=== PATIENT | female | born 1955 | race Caucasian/White ===

== ENCOUNTER 2018-03-16 09:13 | Inpatient (IN) | payer OTHER, SELFPAY ==
[2018-03-04 10:52] VITALS: BMI 24.5
[2018-03-16] VITALS (20 sets, daily range): BP systolic 84–143; BP diastolic 49–79; PULSE 67–84; RESP 10–20; TEMP 36.1–36.9; O2SAT 93–100; BMI 24.5
--- NOTE | 2018-03-16 | DI.RAD.S_ITS ---
PROCEDURE: XR LUMBAR SPINE 2-3V INDICATIONS: L4-5, L5-S1 TLIF TECHNIQUE: 2 views of the lumbar spine were acquired. COMPARISON: None. FINDINGS: Bones: Immediate postoperative examination after placement of transverse pedicle screws and vertical fixation rods establishing normal alignment from L5-S1 with interbody cage disc prostheses placement at the intervening 2 levels. Soft tissues: Overlying bowel gas pattern is normal. No suspicious soft tissue calcifications. IMPRESSION: Expected normal postoperative alignment after posterior fusion procedure as discussed above. Dictated by: Judson Sandra M.D. on 03/16/2018 at 16:48 Approved by: Judson Sandra M.D. on 03/16/2018 at 16:49
[2018-03-16] MEDS: LACTATED RINGERS 1,000 ML 42 ML IV ×2 (09:54→13:33)
--- NOTE | 2018-03-16 11:04 | PM.PREOP ---
Pre-operative Note Interval Note Pre-op Check: Yes History & Physical Reviewed by Physician, Yes Exam Performed and Yes History & Physical exam performed today by Physician Changes: No
[2018-03-16] MEDS: CLINDAMYCIN 600 MG/50 ML PIGGYBACK 50 MG IV ×2 (11:39→19:43)
[2018-03-16] MEDS: BUPIVACAINE 0.25% W/ EPI VIAL 50 ML INJ (12:13)
--- NOTE | 2018-03-16 12:26 | SUR.OPER ---
Prone on spine table, head in foam head support, padded chest and pelvic supports, gel pad at knees, lower legs supported by pillows; nipples, genitalia and toes free of pressure, arms secured on foam padded arm boards at <90 degrees abduction. Tape over blanket at thigh secured to table.
[2018-03-16] MEDS: BUPIVACAINE LIPOSOME 266 MG/20 ML VIAL INJ (13:12)
[2018-03-16] MEDS: ACETAMINOPHEN IV 1,000 MG/100 ML VIAL 400 MG IV (13:49)
--- NOTE | 2018-03-16 15:36 | PM.OP.1 ---
Operative Date/Time/Diagnoses Date of procedure: 03/16/18 Time of procedure: 12:21 Pre-op diagnosis: 1. L4-5 spondylolisthesis 2. L4-5, L5-S1 spinal stenosis 3. L4-5, L5-S1 spondylosis with radiculopathy Post-op diagnosis: same Procedure & Clinicians Procedure: 1. L4-5, L5-S1 Postero-lateral and posterior interbody fusion 2. L4-5, L5-S1 interbody cage placement. 3. L4-5, L5-S1 decompressive laminectomy with bilateral facetecomies 4. L4-5, L5-S1 Posterior segmental instrumentation 5. [place] of bone marrow from iliac crest 6. Utilization of microsurgical technique and operating microscope Same procedure as scheduled: Yes Indications: Patient has been having chronic back pain and worsening lumbar radiculopathy. Patient failed multiple conservative management with worsening pain weakness and numbness in her lower extremity. Patient has been having difficulty performing activity of daily living. After discussing risks benefits of treatment options, patient elected proceed with surgery. Surgeon: Jessica Houser Dynamic Etching Processor: Yeimy Reid Click Yes if Unassisted: No Operative Notes Closure Type: primary Specimen(s): none sent Implants & Drains: Globus revolve screws, Rise cages Applied: catheter Estimated Blood Loss (mL): 100 Blood products transfused: none Procedure in detail: Patient was seen in the preoperative area. Risks and benefits of the surgery was discussed with the patient. Informed consent was obtained from the patient and placed in the chart. Surgical site was marked. Patient was taken to the operative room. General anesthesia was administered. Prophylactic antibiotic was given to the patient less than 30 min before the incision was made. Patient was placed into a prone position on the Mitchell table. Patient's back was then prepped and draped in the sterile fashion. Time-out was performed at this time. Using AP and lateral C-arm imaging the interval between L4-S1 was identified and marked on patient's back. A 2 inch incision 2 in from midline was made on the right side first. The fascia was incised in line with skin incision. Globus MARS retractors was placed inside the incision and docked onto the L4 and L5 lamina. Using microsurgical technique and operating microscope, a L4 and L5 laminectomy and L4-5 L5-S1 facetectomy was performed using a Kerrison rongeur. The disc space at L4-5, L5-S1 was identified. And a total diskectomy was performed at L4-5, L5-S1 level. The endplates were decorticated using a rasp and shaver. The total diskectomy and decortication was performed at L4-5, L5-S1 level in order to to accomplish a L4-5, L5-S1 fusion. The local bone from the laminectomy and facetectomy was saved for local bone grafting. After the total diskectomy and decortication was completed, Globus viacell bone graft material was combined with local bone that was harvested earlier. At this time, a separate skin is incision was made over the iliac crest. A Jamshidi needle was inserted into the iliac crest through a separate skin incision. 5 cc of bone marrow aspiration was obtained through the separate skin incision using a Jamshidi needle from the iliac crest. The bone marrow aspiration was combined with local bone and the via cell bone grafting material. The bone grafting material was placed into the L4-5, L5-S1 interbody space along with two cages, one expandable cage at each level. The cages were expanded to their maximum height using the torque limiting screwdriver. During the process of L4 laminectomy, a small pinhole size dural defect was encountered. Upon exploration, it is not clear whether the defect was present prior to the surgery. The defect was around 1 mm in size. It is not amenable to repair. Tisseel fibrin glue was obtained and placed over the dural defect after the laminectomy was completed. And there was no visible CSF leakage after this was placed. At this time a mirror image incision was made on the left side. The fascia was incised in line with the skin incision. Globus MARS retractor was inserted and docked onto the L4-5, L5-S1 posterolateral gutter. Using the power drill, posterior-lateral decortication was performed at L4-5, L5-S1 level until bleeding cortical bone was identified. The remaining bone grafting material was placed into the L4-5 L5-S1 posterior lateral gutter he order to accomplish posterolateral fusion at the L4-5 L5-S1 levels. Using the double C-arm technique, pedicle screws were placed into the L4, L5, S1 pedicles bilaterally. This was done by placing the Jamshidi needle into the pedicles, then placing the guidewires over the Jamshidi needle, and finally placing the cannulated screws over the guidewires bilaterally. After the pedicle screws were placed, 2 titanium rods was locked into the heads of the pedicle screws using locking caps and torque limiting screwdriver. Total 6 pedicles screws were placed. After all the hardware was placed, and confirmed with AP and lateral C-arm imaging, the wound was then irrigated with sterile normal saline and packed with Ray-Landon gauze for 3 min to accomplish hemostasis. After the gauze was removed the deep fascia was closed with #1 Vicryl suture. The subcutaneous layer was closed with 2-0 Vicryl. The skin was closed with skin sandi. Patient tolerated the procedure well. There were no complications. Complications: none Condition: stable Disposition: Acute Care Plan for aftercare: Admit to inpatient hospital
[2018-03-16] MEDS: HYDROMORPHONE 2 MG INJ 0.5 MG IV ×2 (16:32→16:38)
[2018-03-16] MEDS: HYDROMORPHONE 1 MG INJ 0.5 MG IV ×3 (17:29→22:20)
[2018-03-16] MEDS: SODIUM CHLORIDE 0.9% 1,000 ML 100 ML IV (17:45)
--- NOTE | 2018-03-16 18:09 | PC.NURSE ---
Pt to room 223 from PACU with c/o pain 02/23. Tension throughout. Daughter @ bedside and advocates for pt requesting pain meds. Administered 0.5 mg iv dilaudid and observing orders to keep HOB flat, gently turned pt slightly onto right side to alleviate pain at surgical site to back. Ice pack applied to dressing to back which is dry and intact. Pt is able to move all extremities independently. Observes head of bed flat as ordered. Ice chips. Elias to gravity. Continuous pulse oximeter in place.
[2018-03-16] MEDS: SUCRALFATE 1 GM TABLET PO ×2 (18:38→20:10)
[2018-03-16] MEDS: DOCUSATE 100 MG CAPSULE PO (20:08)
[2018-03-16] MEDS: GABAPENTIN 600 MG TABLET 1200 MG PO (20:09)
[2018-03-16] MEDS: MIRTAZAPINE 15 MG TABLET 30 MG PO (20:09)
[2018-03-16] MEDS: SENNOSIDES 8.6 MG TABLET 17.2 MG PO (20:10)
[2018-03-16] MEDS: ONDANSETRON 4 MG/2 ML INJ IV (21:13)
[2018-03-16] MEDS: TRAZODONE 50 MG TABLET PO (22:20)
[2018-03-16] MEDS: ACETAMINOPHEN 325 MG TABLET 650 MG PO (22:21)
[2018-03-16] MEDS: hydrOXYzine pamoate 25 MG CAPSULE PO (22:22)
--- NOTE | 2018-03-16 23:49 | PC.NURSE ---
1700- Pt arrived to room 223 from PACU via bed. A/O x3, in and out of sleep with snoring, will fall asleep while talking to pt. Hard time remembering most recent interventions/conversations. 99% 2L nc, wheezing to upper left lung, otherwise LS clear. Pt undiagnosed, but daughter, Nnamdi reports sleep apnea, cont pulse ox on. Dural tear during surgery, HOB to remain flat until morning. Q-2hr turns with strict spinal protocol/logrolling, for comfort. Left hand LR @ 100 + ABO's. Dilaudid 0.5mg IVP Q-2hr for 10/10 pain. 2220-clear light yellow emesis from SF jello ( only available), zofran given. Low back gauze/tape drsg CDI. CMS ++, BT/PP+, foot SCD's on, call light in reach, bed alarm on.
[2018-03-17] VITALS (8 sets, daily range): BP systolic 98–134; BP diastolic 48–68; PULSE 66–75; RESP 15–71; TEMP 36.6–36.9; O2SAT 90–100
[2018-03-17] MEDS: HYDROMORPHONE 1 MG INJ 0.5 MG IV ×2 (02:17→05:53)
--- NOTE | 2018-03-17 02:54 | PC.NURSE ---
Pt. asleep, now after medicated with 0.5 mg. Of Dilaudid IVP. Denies any IBARRA & nausea, so far this shift, will cont. POC & monitor.
[2018-03-17] MEDS: CLINDAMYCIN 600 MG/50 ML PIGGYBACK 50 MG IV (03:54)
[2018-03-17] MEDS: PANTOPRAZOLE 20 MG TABLET PO (05:53)
[2018-03-17] MEDS: hydrOXYzine pamoate 25 MG CAPSULE PO ×2 (05:57→18:52)
[2018-03-17 06:19] LABS: Hematocrit 29.3 % (36-46); Hemoglobin 9.5 g/dL (12.0-16.0)
[2018-03-17] MEDS: SODIUM CHLORIDE 0.9% 1,000 ML 100 ML IV (06:20)
[2018-03-17] MEDS: AMLODIPINE 5 MG TABLET PO (08:16)
[2018-03-17] MEDS: OXYCODONE IR 5 MG TABLET 10 MG PO ×5 (08:16→21:43)
[2018-03-17] MEDS: DOCUSATE 100 MG CAPSULE PO ×2 (08:16→21:11)
[2018-03-17] MEDS: ENALAPRIL 20 MG TABLET PO (08:16)
[2018-03-17] MEDS: SUCRALFATE 1 GM TABLET PO ×4 (08:18→21:15)
[2018-03-17] MEDS: GABAPENTIN 600 MG TABLET PO ×2 (08:18→12:25)
[2018-03-17] MEDS: ONDANSETRON 4 MG/2 ML INJ IV (08:34)
--- NOTE | 2018-03-17 09:19 | CM.DANOTE ---
DCP: Case received, EMR reviewed and met with patient. Introduced self and role. DCP template completed with information currently available. Patient is a 63 year old female who admitted yesterday morning to the care of the hospitalist team. PCP: Dr. Hayden. Payer: confirmed: [facility]. Patient came to hospital for L4-5, L5-S1 Posterio-lateral fusion. Patient has had chronic back pain. Met with patient, alert and oriented, laying flat in bed. Stated that she is independent, and lives with her son and girl-friend. Also stated that she is planning on staying with her friend, Ag, who lives in [facility], when she gets discharged. P: DCP to continue to follow closely. Patient may have outpatient therapy, or could benefit from home health as well, depending on her progress with the therapy team. Kassy Evans RN/Culinary Arts Teacher
--- NOTE | 2018-03-17 10:32 | PT.IPTN ---
Current Diagnoses Spondylolisthesis, lumbar region (03/16/18) Other spondylosis with radiculopathy, lumbar region (03/16/18) Spinal stenosis, lumbar region without neurogenic claudication (03/16/18) Surgery Performed Operation Date: 03/16/18 11:15 Actual Procedures p L4-5, L5-S1 TLIF w/ Posterior Instrumentation(Not Applicable) - Jessica Houser MD Physical Therapy Treatment Note M3 PT-IP Subjective Start: 03/17/18 10:29 Freq: NEEDED Status: Active Protocol: Document 03/17/18 10:30 AB (Rec: 03/17/18 10:31 AB [id number]) Subjective Physical Therapy Visit Type Notes pt currently has bedrest order and asked the nurse to clarify and change activity order before pt can be seen for PT. per charge nurse during rounds: pt will be flat on bed until 5 pm today due to dural tear. will f/u.
--- NOTE | 2018-03-17 13:39 | OT.IP.TRT ---
Current Diagnoses Spondylolisthesis, lumbar region (03/16/18) Other spondylosis with radiculopathy, lumbar region (03/16/18) Spinal stenosis, lumbar region without neurogenic claudication (03/16/18) Surgery Performed Operation Date: 03/16/18 11:15 Actual Procedures p L4-5, L5-S1 TLIF w/ Posterior Instrumentation(Not Applicable) - Jessica Houser MD Occupational Therapy Treatment Note M3 OT- IP Subjective and Pain Start: 03/17/18 13:37 Freq: Status: Active Protocol: Document 03/17/18 13:38 PJM (Rec: 03/17/18 13:39 PJM [id number]) OT- Subjective Occupational Therapy Visit Type Type Administrative Note Visit Start Time 13:35 Notes OT referral received. Pt on bedrest today s/p L4-S1 fusion on 03/16/18 with dural tear. Will hold OT evaluation today and intiate tomorrow as medical status permits. No charge.
--- NOTE | 2018-03-17 16:09 | PC.NURSE ---
1600; patient reported increasing pain, currently 5/10 but worsening. Patient is now able to use pain scale, so FLACC scale no longer needed. Gave Q3HR PRN hydrocodone 10 mg to keep pain at a manageable level, will reassess pain in 30 minutes. Also gave patient incentive spirometer and conducted patient teaching regarding importance of respiratory hygiene; patient is actively using spirometer.
--- NOTE | 2018-03-17 16:10 | PT.IIE ---
Current Diagnoses Spondylolisthesis, lumbar region (03/16/18) Other spondylosis with radiculopathy, lumbar region (03/16/18) Spinal stenosis, lumbar region without neurogenic claudication (03/16/18) Surgery Performed Operation Date: 03/16/18 11:15 Actual Procedures p L4-5, L5-S1 TLIF w/ Posterior Instrumentation(Not Applicable) - Jessica Houser MD Surgical History (Last Updated 03/04/18 @ 11:01 by Emi Wallace RN) History of arthroscopy of left shoulder (Acute) History of bilateral tubal ligation (Acute) Hx of LASIK (Acute) Hx of repair of left rotator cuff (Acute) Hx of tonsillectomy (Acute) Medical History (Last Updated 03/04/18 @ 11:14 by Emi Wallace RN) Chronic back pain (Acute) Constipation (Acute) Depression (Acute) GERD (gastroesophageal reflux disease) (Acute) HTN (hypertension) (Acute) Hiatal hernia (Acute) Hyperlipidemia (Acute) IBS (irritable bowel syndrome) (Acute) Migraines (Acute) Llamas's neuroma of both feet (Acute) Numbness and tingling of both legs (Acute) Physical Therapy Inpatient Evaluation/Re-Eval M1 PT/OT-IP Prior Functional Status Start: 03/17/18 10:29 Freq: NEEDED Status: Active Protocol: Document 03/17/18 16:10 AB (Rec: 03/17/18 17:12 AB [id number]) Medical Review Prior Functional Status Medical History Reviewed Yes Communication able to make needs known Mobility and Gait pt stated that she is independent with all mobilities and ambulation without AD Social History Household Members none Living Arrangements House Number of Floors (Floors) One Floor Number of Stairs To Enter/Railing? 1 step to enter Home Environment High Toilet Tub/Shower Home Equipment Front Wheel Walker Shower Seat with Backrest Hand Held Shower Additional Social History Comment pt lives alone but plans to go to a friends house after d/c and will have 24/7 assist M2 PT-IP Current Condition Start: 03/17/18 10:29 Freq: NEEDED Status: Active Protocol: Document 03/17/18 16:10 AB (Rec: 03/17/18 17:12 AB [id number]) Physical Therapy Current Condition Current Condition Evaluation Date 03/17/18 Treatment Diagnosis s/p L4-L5, L5S1 fusion and laminectomy; difficulty in walking Onset Date 03/17/18 Precautions Lumbar Precautions Log Roll No Twisting Limit Bending Lifting Restriction of 10 lbs Gait Belt above Incisional Area M3 PT-IP Subjective Start: 03/17/18 10:29 Freq: NEEDED Status: Active Protocol: Document 03/17/18 16:10 AB (Rec: 03/17/18 17:12 AB [id number]) Subjective Physical Therapy Visit Type Type Initial Evaluation Visit Start Time 16:10 Visit Stop Time 16:50 Total Visit Minutes 40 Notes per nurse, pt without any complaints after HOB elevated to 45 degrees(since 3pm) Number of HOG BUYER Visits 0 Physical Therapy Visit Comments Patient Comments pt agreeable to do PT Therapy Pain Assessment Pain When Pain Assessed At Rest Pain Present Pain Present Pain Reported Location Back Intensity 4 Scale Used increased to 10/10 with mobility Pain Management Techniques Apply Cold Re-positioning Timing of Activity with Medications M4 PT-IP Mobility and Gait Start: 03/17/18 10:29 Freq: NEEDED Status: Active Protocol: Document 03/17/18 16:10 AB (Rec: 03/17/18 17:12 AB [id number]) PT-Bed Mobility Assessment Rolling Type of Rolling Log Rolling Level of Assist Minimal Assistance Supine to Sit Supine to Sit Moderate Assistance 1 Person Assistance Sit to Supine Sit to Supine Moderate Assistance 1 Person Assistance Scooting Scooting to Edge of Bed Contact Guard Assistance PT-Transfer Assessment Sit to and From Stand Sit to and from Stand Moderate Assistance Maximum Assistance 1 Person Assistance Equipment Transfer Assistive Device Gait Belt Front Wheeled Walker Orthotic/Prosthetic Devices or Brace: No Transfers Transfer Destination Chair Transfer Technique Stand Step Pivot Transfer Ability Level of Assist Maximum Assistance 2 Person Assistance Use of Upper Extremities Comments Mobility Comments pt with (+) L knee buckling with initial standing and instructed to sit back down. pt agreed to try again. pt was able to ambulate ~ 3 ft to the chair max A x 2 and max cues for safety with PT stabilizing L knee. positioned pt on chair. call light and table placed within reach. Gait Assessment Gait Gait Assistance Required: Maximum Assistance 2 Person Assist Distance (Feet) 3 Able to Maintain Weight Bearing Status Yes During Gait Assistive Devices Assistive Device Gait Belt Front Wheeled Walker Gait Deviations General Gait Pattern Decreased Stride Length Decreased Feet Clearance Step-to Gait Factors Limiting Gait Function Factors Limiting Gait Function Decreased Activity Tolerance Decreased Sensation Decreased Strength Pain Poor Balance Poor Safety Awareness Comments Gait Comments requires stabilization on L knee to prevent from buckling PT-Balance Assessment Sitting Balance and Reactions Static Sitting Balance Ability Good Dynamic Sitting Balance Ability Good Standing Balance and Reactions Static Standing Balance Ability Poor Dynamic Standing Balance Ability Poor Device Used FWW M5 PT-IP Objective Assessments Start: 03/17/18 10:29 Freq: NEEDED Status: Active Protocol: Document 03/17/18 16:10 AB (Rec: 03/17/18 17:12 AB [id number]) Orientation Orientation/Cognition Level of Alertness Alert Orientation Name Age Birthday Month Date Year Day of Week Place Situation Gross Range of Motion Lower Extremity ROM Assessment Within Functional Limits Strength Lower Extremity Strength Assessment Left Impaired Knee 3-/5 Sensation Assessment Sensation Gross Sensation Right LE Impaired Left LE Impaired Sensation Description Numbness Tingling Comments Sensation Comments c/o R knee, foot and toe numbness/tingling and bilateral quads numbness M6 PT-IP Treatment Start: 03/17/18 10:29 Freq: NEEDED Status: Active Protocol: Document 03/17/18 16:10 AB (Rec: 03/17/18 17:12 AB [id number]) Physical Therapy Treatment Education Education Provided Precautions Weight Bearing Status Post-Op Packet Safety Other Treatments Other Treatment Performed educated pt regarding POC and PT d/c plans. pt agreed to caregiver training and stair training when appropriate M7 PT-IP Assessment and Plan Start: 03/17/18 10:29 Freq: NEEDED Status: Active Protocol: Document 03/17/18 16:10 AB (Rec: 03/17/18 17:12 AB [id number]) PT Summary Assessment and Plan Potential Rehabilitation Potential Good Status of Condition at Evaluation Evolving Summary Impairments Pain ROM Strength Balance Coordination Sensation Tone Cognition Bed Mobility Transfers Gait Activity Tolerance Assessment Summary pt requiring 2 person assist with transfers using FWW with (+) L knee buckling. d/c plans depending on progress. caregiver training will be conducted when appropriate and stair climbing training. will continue to assess. Goals Bed Mobility Goal Standby Assistance Transfer Goal Standby Assistance Front Wheeled Walker Gait Goal Standby Assistance Front Wheel Walker Gait Distance 100 Other Goals up/down 1 step using fWW CGA Days to Meet Goals 5 Frequency of Treatment Frequency Of Treatment Twice a Day Treatment Plan Physical Therapy Treatment Plan Bed Mobility Training Transfer Training Gait Training Therapeutic Exercise Balance Retraining Post Op Education Discharge Planning Hot or Cold Pack Neuromuscular Re-ed Coordination Retraining Manual Therapy Other Recommendations and Next Treatment ambulation, LE strengthening Focus Recommendations To Nursing Amount of Assist Needed 2 Person Assist Discharge Recommendations PT Discharge Recommendations Home with 07/12 Assist Home Health SNF Rehab
--- NOTE | 2018-03-17 16:10 | PT.IIE ---
Current Diagnoses Spondylolisthesis, lumbar region (03/16/18) Other spondylosis with radiculopathy, lumbar region (03/16/18) Spinal stenosis, lumbar region without neurogenic claudication (03/16/18) Surgery Performed Operation Date: 03/16/18 11:15 Actual Procedures p L4-5, L5-S1 TLIF w/ Posterior Instrumentation(Not Applicable) - Jessica Houser MD Surgical History (Last Updated 03/04/18 @ 11:01 by Emi Wallace RN) History of arthroscopy of left shoulder (Acute) History of bilateral tubal ligation (Acute) Hx of LASIK (Acute) Hx of repair of left rotator cuff (Acute) Hx of tonsillectomy (Acute) Medical History (Last Updated 03/04/18 @ 11:14 by Emi Wallace RN) Chronic back pain (Acute) Constipation (Acute) Depression (Acute) GERD (gastroesophageal reflux disease) (Acute) HTN (hypertension) (Acute) Hiatal hernia (Acute) Hyperlipidemia (Acute) IBS (irritable bowel syndrome) (Acute) Migraines (Acute) Llamas's neuroma of both feet (Acute) Numbness and tingling of both legs (Acute) Physical Therapy Inpatient Evaluation/Re-Eval M1 PT/OT-IP Prior Functional Status Start: 03/17/18 10:29 Freq: NEEDED Status: Active Protocol: Document 03/17/18 16:10 AB (Rec: 03/17/18 17:12 AB [id number]) Medical Review Prior Functional Status Medical History Reviewed Yes Communication able to make needs known Mobility and Gait pt stated that she is independent with all mobilities and ambulation without AD Social History Household Members none Living Arrangements House Number of Floors (Floors) One Floor Number of Stairs To Enter/Railing? 1 step to enter Home Environment High Toilet Tub/Shower Home Equipment Front Wheel Walker Shower Seat with Backrest Hand Held Shower Additional Social History Comment pt lives alone but plans to go to a friends house after d/c and will have 24/7 assist M2 PT-IP Current Condition Start: 03/17/18 10:29 Freq: NEEDED Status: Active Protocol: Document 03/17/18 16:10 AB (Rec: 03/17/18 17:12 AB [id number]) Physical Therapy Current Condition Current Condition Evaluation Date 03/17/18 Treatment Diagnosis s/p L4-L5, L5S1 fusion and laminectomy; difficulty in walking Onset Date 03/17/18 Precautions Lumbar Precautions Log Roll No Twisting Limit Bending Lifting Restriction of 10 lbs Gait Belt above Incisional Area M3 PT-IP Subjective Start: 03/17/18 10:29 Freq: NEEDED Status: Active Protocol: Document 03/17/18 16:10 AB (Rec: 03/17/18 17:12 AB [id number]) Subjective Physical Therapy Visit Type Type Initial Evaluation Visit Start Time 16:10 Visit Stop Time 16:50 Total Visit Minutes 40 Notes ~3pm, PA came in to inform that pt is ok to participate and get up with PT after ~ 30 min if pt continues to have no symptoms or complaints due to dural tear. activity order also was changes to ambulate as tolerated. checked with nurse at 410 pm and per nurse, pt without any complaints after HOB elevated to 45 degrees(since 3pm) and cleared to mobilize with PT. Number of CIRCUIT BREAKER ASSEMBLER Visits 0 Physical Therapy Visit Comments Patient Comments pt agreeable to do PT Therapy Pain Assessment Pain When Pain Assessed At Rest Pain Present Pain Present Pain Reported Location Back Intensity 4 Scale Used increased to 10/10 with mobility Pain Management Techniques Apply Cold Re-positioning Timing of Activity with Medications M4 PT-IP Mobility and Gait Start: 03/17/18 10:29 Freq: NEEDED Status: Active Protocol: Document 03/17/18 16:10 AB (Rec: 03/17/18 17:12 AB [id number]) PT-Bed Mobility Assessment Rolling Type of Rolling Log Rolling Level of Assist Minimal Assistance Supine to Sit Supine to Sit Moderate Assistance 1 Person Assistance Sit to Supine Sit to Supine Moderate Assistance 1 Person Assistance Scooting Scooting to Edge of Bed Contact Guard Assistance PT-Transfer Assessment Sit to and From Stand Sit to and from Stand Moderate Assistance Maximum Assistance 1 Person Assistance Equipment Transfer Assistive Device Gait Belt Front Wheeled Walker Orthotic/Prosthetic Devices or Brace: No Transfers Transfer Destination Chair Transfer Technique Stand Step Pivot Transfer Ability Level of Assist Maximum Assistance 2 Person Assistance Use of Upper Extremities Comments Mobility Comments pt with (+) L knee buckling with initial standing and instructed to sit back down. pt agreed to try again. pt was able to ambulate ~ 3 ft to the chair max A x 2 and max cues for safety with PT stabilizing L knee. positioned pt on chair. call light and table placed within reach. Gait Assessment Gait Gait Assistance Required: Maximum Assistance 2 Person Assist Distance (Feet) 3 Able to Maintain Weight Bearing Status Yes During Gait Assistive Devices Assistive Device Gait Belt Front Wheeled Walker Gait Deviations General Gait Pattern Decreased Stride Length Decreased Feet Clearance Step-to Gait Factors Limiting Gait Function Factors Limiting Gait Function Decreased Activity Tolerance Decreased Sensation Decreased Strength Pain Poor Balance Poor Safety Awareness Comments Gait Comments requires stabilization on L knee to prevent from buckling PT-Balance Assessment Sitting Balance and Reactions Static Sitting Balance Ability Good Dynamic Sitting Balance Ability Good Standing Balance and Reactions Static Standing Balance Ability Poor Dynamic Standing Balance Ability Poor Device Used FWW M5 PT-IP Objective Assessments Start: 03/17/18 10:29 Freq: NEEDED Status: Active Protocol: Document 03/17/18 16:10 AB (Rec: 03/17/18 17:12 AB [id number]) Orientation Orientation/Cognition Level of Alertness Alert Orientation Name Age Birthday Month Date Year Day of Week Place Situation Gross Range of Motion Lower Extremity ROM Assessment Within Functional Limits Strength Lower Extremity Strength Assessment Left Impaired Knee 3-/5 Sensation Assessment Sensation Gross Sensation Right LE Impaired Left LE Impaired Sensation Description Numbness Tingling Comments Sensation Comments c/o R knee, foot and toe numbness/tingling and bilateral quads numbness M6 PT-IP Treatment Start: 03/17/18 10:29 Freq: NEEDED Status: Active Protocol: Document 03/17/18 16:10 AB (Rec: 03/17/18 17:12 AB [id number]) Physical Therapy Treatment Education Education Provided Precautions Weight Bearing Status Post-Op Packet Safety Other Treatments Other Treatment Performed educated pt regarding POC and PT d/c plans. pt agreed to caregiver training and stair training when appropriate M7 PT-IP Assessment and Plan Start: 03/17/18 10:29 Freq: NEEDED Status: Active Protocol: Document 03/17/18 16:10 AB (Rec: 03/17/18 17:12 AB [id number]) PT Summary Assessment and Plan Potential Rehabilitation Potential Good Status of Condition at Evaluation Evolving Summary Impairments Pain ROM Strength Balance Coordination Sensation Tone Cognition Bed Mobility Transfers Gait Activity Tolerance Assessment Summary pt requiring 2 person assist with transfers using FWW with (+) L knee buckling. d/c plans depending on progress. caregiver training will be conducted when appropriate and stair climbing training. will continue to assess. Goals Bed Mobility Goal Standby Assistance Transfer Goal Standby Assistance Front Wheeled Walker Gait Goal Standby Assistance Front Wheel Walker Gait Distance 100 Other Goals up/down 1 step using fWW CGA Days to Meet Goals 5 Frequency of Treatment Frequency Of Treatment Twice a Day Treatment Plan Physical Therapy Treatment Plan Bed Mobility Training Transfer Training Gait Training Therapeutic Exercise Balance Retraining Post Op Education Discharge Planning Hot or Cold Pack Neuromuscular Re-ed Coordination Retraining Manual Therapy Other Recommendations and Next Treatment ambulation, LE strengthening Focus Recommendations To Nursing Amount of Assist Needed 2 Person Assist Discharge Recommendations PT Discharge Recommendations Home with 07/12 Assist Home Health SNF Rehab
--- NOTE | 2018-03-17 18:24 | P.PN_ITS ---
Subjective Date Patient Seen: 03/17/18 Time Patient Seen: 18:10 Interval history: POD #1 status post L4-S1 TLIF with Dr. Houser. Patient is sitting upright in chair comfortably with no signs of distress. Daughter is in room. Patient was placed on bed rest orders post op due to dural tear. Patient started PT today and was able to get out of bed and into chair. She reports that her pain is manageable at this time with 25mg Vistaril and 10mg oxycodone. Angulo intact. As of right now, patient reports that she would like to keep angulo in as it is very difficult for her to walk to bathroom. She reports her best friend will be home to assist her upon discharge. She denies any fever, chills,nausea, vomiting, SOB or chest pain. Angulo intact. Exam Vital Signs (past 8 hours): - 03/17/18 11:46 03/17/18 15:25 Temperature 97.8 F 98.5 F Pulse Rate 73 66 Respiratory Rate 17 18 Blood Pressure 134/59 L 98/67 Pulse Oximetry 94 98 Oxygen Delivery Method Room Air Oxygen Flow Rate 0 Narrative Exam Narrative: Patient examined in chair. Patient is AOx3. She is sitting up right comfortably in chair in no acute distress. Radial and dorsalis pedis pulses 2+ and symmetric. 5/5 muscle strength in dorsiflexion, plantarflexion and independent film maker bilaterally. Sensation to light touch intact in LE bilaterally. Lumbar dressing CDI. Angulo intact. Calfs are soft, compressible and non tender bilaterally. Objective Labs Result Diagrams: 03/17/18 05:26 Labs: Laboratory Results - last 24 hr 03/17/18 05:26 Hgb 9.5 L Hct 29.3 L Assessment & Plan Post-op Postoperative Procedures Operation Date: 03/16/18 11:15 Actual Procedures Side Surgeon p L4-5, L5-S1 TLIF w/ Posterior Instrumentation Not Applicable Jessica Houser MD Postoperative day: 1 Postoperative status: doing well Postoperative plan: routine post-op care Postoperative plan narrative: Continue mobilizing, sitting in chair and ambulating with PT. Continue pain management. D/C angulo once patient is more mobile. Likely to discharge home in the next 1-2 days. Time Spent With Patient less than 15 minutes Quality VTE Deep Vein Thrombosis/Pulmonary Embolism Present on Admission: No
[2018-03-17] MEDS: GABAPENTIN 600 MG TABLET 1200 MG PO (21:11)
[2018-03-17] MEDS: MIRTAZAPINE 15 MG TABLET 30 MG PO (21:12)
[2018-03-17] MEDS: SENNOSIDES 8.6 MG TABLET 17.2 MG PO (21:13)
[2018-03-17] MEDS: TRAZODONE 50 MG TABLET PO (21:15)
[2018-03-17] MEDS: SODIUM CHLORIDE 0.9% FLUSH 10 ML IV (21:15)
--- NOTE | 2018-03-17 22:30 | PC.NURSE ---
0; patient snoring loudly and intermittently holding her breath, woke to roll to right side (supported with pillow under back and between knees). Placed O2 sat monitor on right hand. Explained importance of monitoring her respiratory status because of the regular dosages of opioid analgesics she has been receiving. Relayed this to patient's RN to pass along to slot shift manager. Left patient with call light in reach, bed locked and in lowest position.
--- NOTE | 2018-03-17 22:39 | PC.NURSE ---
Student Nurse Note: This student nurse was alerted by the vitals monitor that the patients 02 had dipped around 86%. Patient was awoken from a sleep and instructed to take deep breaths and it raised to 96%. Charge nurse instructed intermittent monitoring versus continuous.
[2018-03-18] VITALS (7 sets, daily range): BP systolic 99–118; BP diastolic 53–70; PULSE 71–80; RESP 16–18; TEMP 37–37.9; O2SAT 87–97
[2018-03-18] MEDS: ACETAMINOPHEN 325 MG TABLET 650 MG PO (02:24)
--- NOTE | 2018-03-18 03:47 | PC.NURSE ---
Pt is A and O x 2, self and place, slightly somnolent with shallow breathing. O2 sat on RA after 0200 was 88%, RR=12. On 2L O2 NC pt O2 = mid 90's. Denies pain, nausea. LS clear and S1, S2.
[2018-03-18] MEDS: PANTOPRAZOLE 20 MG TABLET PO (05:45)
[2018-03-18] MEDS: OXYCODONE IR 5 MG TABLET 10 MG PO ×3 (08:13→15:06)
[2018-03-18] MEDS: DOCUSATE 100 MG CAPSULE PO ×2 (08:17→21:05)
[2018-03-18] MEDS: DICYCLOMINE 10 MG CAPSULE 20 MG PO (08:18)
[2018-03-18] MEDS: SUCRALFATE 1 GM TABLET PO ×4 (08:18→21:04)
[2018-03-18] MEDS: GABAPENTIN 600 MG TABLET PO ×2 (08:18→12:11)
--- NOTE | 2018-03-18 08:32 | PM.PNPO.1 ---
Subjective Date Patient Seen: 03/18/18 Time Patient Seen: 08:32 Interval history: Hospital day 3, postop day 2 following L4-5, L5-S1 TLIF and posterior instrumentation by Dr. Houser. Patient is complaining of some increased back pain and generalized aching this morning. She is only on Tylenol through the night. Patient did have a dural leak and has been limited on her head elevation and more on bedrest. States she was up to chair yesterday evening. Still notes some numbness and tingling to her proximal legs which he states was not there before the surgery. Still has Elias catheter in place. H&H today is 9.5/29.3. Exam Vital Signs (past 8 hours): - 03/18/18 02:14 03/18/18 06:06 03/18/18 07:20 Temperature 100.2 F H 98.6 F 98.9 F Pulse Rate 77 72 Respiratory Rate 16 16 Blood Pressure 110/55 L 99/53 L Pulse Oximetry 87 L 97 Oxygen Delivery Method Nasal Cannula Oxygen Flow Rate 2 Narrative Exam Narrative: Alert, responsive in no acute distress but appearing uncomfortable. Back. Dressing to lumbar area is dry without signs of drainage or inflammation. Legs. No calf pain or swelling. Pulses symmetrical. Good sensation to touch to the lower legs symmetrical. Good strength on foot dorsiflexion plantar flexion. Objective Labs Result Diagrams: 03/17/18 05:26 Assessment & Plan Post-op (1) Postoperative anemia due to acute blood loss: Onset Date: ~03/2018 Current Visit: Yes Status: Acute Postoperative Procedures Operation Date: 03/16/18 11:15 Actual Procedures Side Surgeon p L4-5, L5-S1 TLIF w/ Posterior Instrumentation Not Applicable Jessica Houser MD Will start patient on dexamethasone 10 mg p.o. now and then dexamethasone 4 mg q.8h to see if this will improve her pain and function. Will recheck H&H in the morning. Patient will work with physical therapy today. Anticipate DC Elias catheter today when she is more active. I anticipate discharge home tomorrow if she is stable. Quality VTE Deep Vein Thrombosis/Pulmonary Embolism Present on Admission: No
[2018-03-18] MEDS: SODIUM CHLORIDE 0.9% FLUSH 10 ML IV ×2 (09:00→21:04)
--- NOTE | 2018-03-18 10:55 | PT.IPTN ---
Current Diagnoses Acute posthemorrhagic anemia (03/16/18) Spondylolisthesis, lumbar region (03/16/18) Other spondylosis with radiculopathy, lumbar region (03/16/18) Spinal stenosis, lumbar region without neurogenic claudication (03/16/18) Surgery Performed Operation Date: 03/16/18 11:15 Actual Procedures p L4-5, L5-S1 TLIF w/ Posterior Instrumentation(Not Applicable) - Jessica Houser MD Physical Therapy Treatment Note M2 PT-IP Current Condition Start: 03/17/18 10:29 Freq: NEEDED Status: Active Protocol: Document 03/17/18 16:10 AB (Rec: 03/17/18 17:12 AB [id number]) Physical Therapy Current Condition Current Condition Evaluation Date 03/17/18 Treatment Diagnosis s/p L4-L5, L5S1 fusion and laminectomy; difficulty in walking Onset Date 03/17/18 Precautions Lumbar Precautions Log Roll No Twisting Limit Bending Lifting Restriction of 10 lbs Gait Belt above Incisional Area M3 PT-IP Subjective Start: 03/17/18 10:29 Freq: NEEDED Status: Active Protocol: Document 03/18/18 10:55 GGD (Rec: 03/18/18 12:03 GGD [id number]) Subjective Physical Therapy Visit Type Type Treatment Note Visit Start Time 10:30 Visit Stop Time 10:55 Total Visit Minutes 25 Physical Therapy Visit Comments Patient Comments Pt states she would like to get up. Therapy Pain Assessment Pain When Pain Assessed During Mobility Pain Present Pain Present Pain Reported Location Back Intensity 7 Scale Used Numeric (1 - 10) M4 PT-IP Mobility and Gait Start: 03/17/18 10:29 Freq: NEEDED Status: Active Protocol: Document 03/18/18 10:55 GGD (Rec: 03/18/18 12:03 GGD [id number]) PT-Bed Mobility Assessment Rolling Type of Rolling Log Rolling Level of Assist Minimal Assistance Supine to Sit Supine to Sit Moderate Assistance 1 Person Assistance Scooting Scooting to Edge of Bed Minimal Assistance PT-Transfer Assessment Sit to and From Stand Sit to and from Stand Moderate Assistance 1 Person Assistance Use of Upper Extremities Equipment Transfer Assistive Device Gait Belt Front Wheeled Walker Orthotic/Prosthetic Devices or Brace: No Transfers Transfer Destination Chair Gait Assessment Gait Gait Assistance Required: Minimum Assistance 1 Person Assist Distance (Feet) 20 Able to Maintain Weight Bearing Status Yes During Gait Assistive Devices Assistive Device Gait Belt Front Wheeled Walker Gait Deviations General Gait Pattern Decreased Stride Length Decreased Feet Clearance Step-to Gait Factors Limiting Gait Function Factors Limiting Gait Function Decreased Activity Tolerance Decreased Sensation Decreased Strength Pain Poor Balance Poor Safety Awareness M5 PT-IP Objective Assessments Start: 03/17/18 10:29 Freq: NEEDED Status: Active Protocol: Document 03/17/18 16:10 AB (Rec: 03/17/18 17:12 AB [id number]) Orientation Orientation/Cognition Level of Alertness Alert Orientation Name Age Birthday Month Date Year Day of Week Place Situation Gross Range of Motion Lower Extremity ROM Assessment Within Functional Limits Strength Lower Extremity Strength Assessment Left Impaired Knee 3-/5 Sensation Assessment Sensation Gross Sensation Right LE Impaired Left LE Impaired Sensation Description Numbness Tingling Comments Sensation Comments c/o R knee, foot and toe numbness/tingling and bilateral quads numbness M6 PT-IP Treatment Start: 03/17/18 10:29 Freq: NEEDED Status: Active Protocol: Document 03/18/18 10:55 GGD (Rec: 03/18/18 12:03 GGD [id number]) Physical Therapy Treatment Education Education Provided Precautions M7 PT-IP Assessment and Plan Start: 03/17/18 10:29 Freq: NEEDED Status: Active Protocol: Document 03/18/18 10:55 GGD (Rec: 03/18/18 12:03 GGD [id number]) PT Summary Assessment and Plan Summary Assessment Summary Pt had increase in pain with mobility. She needed less assistance with sit to stand and gait. She was able to progress gait distance. She had mild unsteadiness and L knee buckling with gait. Frequency of Treatment Frequency Of Treatment Twice a Day Treatment Plan Other Recommendations and Next Treatment ambulation, LE strengthening Focus Recommendations To Nursing Amount of Assist Needed 2 Person Assist Discharge Recommendations PT Discharge Recommendations Home with 07/12 Assist Home Health SNF Rehab
[2018-03-18] MEDS: hydrOXYzine pamoate 25 MG CAPSULE PO (11:19)
[2018-03-18] MEDS: ONDANSETRON 4 MG/2 ML INJ IV (12:09)
[2018-03-18] MEDS: DEXAMETHASONE 10 MG/ML VIAL PO (12:09)
--- NOTE | 2018-03-18 14:01 | CM.DPC ---
DCP: continued: Case received, EMR reviewed and note that pt sustained a dural tear in the surgical process which has limited her ability to work with therapists. PT and OT are seeing her today. P: discuss tomorrow in Team Rounds and meet prn with pt for d/c issues and options. Her d/c plan goal as discussed with CM/dcp: Roya on 03/17 was a d/c to her friend Ag's home in [place].
--- NOTE | 2018-03-18 14:45 | OT.IP.EVAL ---
Current Diagnoses Acute posthemorrhagic anemia (03/16/18) Spondylolisthesis, lumbar region (03/16/18) Other spondylosis with radiculopathy, lumbar region (03/16/18) Spinal stenosis, lumbar region without neurogenic claudication (03/16/18) Surgery Performed Operation Date: 03/16/18 11:15 Actual Procedures p L4-5, L5-S1 TLIF w/ Posterior Instrumentation(Not Applicable) - Jessica Houser MD Past Medical History (Last Updated 03/04/18 @ 11:14 by Emi Wallace RN) Chronic back pain (Acute) Constipation (Acute) Depression (Acute) GERD (gastroesophageal reflux disease) (Acute) HTN (hypertension) (Acute) Hiatal hernia (Acute) Hyperlipidemia (Acute) IBS (irritable bowel syndrome) (Acute) Migraines (Acute) Llamas's neuroma of both feet (Acute) Numbness and tingling of both legs (Acute) Surgical History (Last Updated 03/04/18 @ 11:01 by Emi Wallace RN) History of arthroscopy of left shoulder (Acute) History of bilateral tubal ligation (Acute) Hx of LASIK (Acute) Hx of repair of left rotator cuff (Acute) Hx of tonsillectomy (Acute) Occupational Therapy Inpatient Evaluation/Re-Eval M1 PT/OT-IP Prior Functional Status Start: 03/17/18 10:29 Freq: NEEDED Status: Active Protocol: Document 03/18/18 14:25 [facility] (Rec: 03/18/18 14:45 [facility] [email or web address]) Medical Review Prior Functional Status Medical History Reviewed Yes Communication able to make needs known Mobility and Gait pt stated that she is independent with all mobilities and ambulation without AD Social History Household Members none Living Arrangements House Number of Floors (Floors) One Floor Number of Stairs To Enter/Railing? 1 step to enter Home Environment High Toilet Tub/Shower Home Equipment Front Wheel Walker Shower Seat with Backrest Hand Held Shower Additional Social History Comment pt lives alone but plans to go to a friends house after d/c and will have 24/7 assist M2 OT-IP Current Condition Start: 03/17/18 13:37 Freq: Status: Active Protocol: Document 03/18/18 14:25 [facility] (Rec: 03/18/18 14:45 [facility] [email or web address]) Occupational Therapy Current Condition Current Condition Evaluation Date 03/18/18 Treatment Diagnosis S/P L4-S1 PLIF Diagnosis Onset Date 03/16/18 Post Operative Precautions Lumbar Precautions Log Roll No Twisting Limit Bending Lifting Restriction of 10 lbs Gait Belt above Incisional Area M3 OT- IP Subjective and Pain Start: 03/17/18 13:37 Freq: Status: Active Protocol: Document 03/18/18 14:25 [facility] (Rec: 03/18/18 14:45 [facility] [email or web address]) OT- Subjective Occupational Therapy Visit Type Type Initial Evaluation Visit Start Time 12:55 Visit Stop Time 13:25 Total Visit Minutes 30 Occupational Therapy Visit Comments Patient Comments Pt wanting to get up from the BSC. OT Pain Assessment Pain When Pain Assessed At Rest Pain Present Pain Present Pain Reported Location Back Intensity 2 M4 OT- IP ADL's Start: 03/17/18 13:37 Freq: Status: Active Protocol: Document 03/18/18 14:25 [facility] (Rec: 03/18/18 14:45 [facility] [email or web address]) OT ADL-Dressing Comments OT Dressing Comments Educated on AED as pt has a orchestra teacher at home. Pt was very groogy and not following commands well and BP 88/59. OT ADL-Toileting Comments OT Toileting Comments Pt not able to have a bowel movement , however able to have gas. OT ADL-Bathing Comments OT Bathing Comments Pt's daughter states has a wide shower chair. M6 OT- IP Functional Cognition Start: 03/17/18 13:37 Freq: Status: Active Protocol: Document 03/18/18 14:25 [facility] (Rec: 03/18/18 14:45 [facility] [email or web address]) Cognitive Factors Limiting Selfcare Function Cognitive Ability Level of Alertness Alert Drowsy Patient Orientation Name Place Situation Attention Span Ability Capable of Focused Attention Unable to Sustain Attention Ability to Follow Commands Able to Follow One Step Commands with Increased Time Able to Follow One Step Commands with Repetition Memory Description Short Term Impaired Cognitive Comments Cognitive Assessment Comments Pt very groogy, having trouble following directions, and recalling back precautions and needing step by step instructions for log rolling. M7 OT- IP Mobility and Balance Start: 03/17/18 13:37 Freq: Status: Active Protocol: Document 03/18/18 14:25 [facility] (Rec: 03/18/18 14:45 [facility] [email or web address]) OT- Bed Mobility Assessment Sit to Supine Sit to Supine Assist Moderate Assistance 1 Person Assistance OT-Transfer Assessment Sit to and From Stand Sit to and from Stand Moderate Assistance 1 Person Assistance Transfers Transfer Ability Minimal Assistance Technique Transfer Destination Bed Bedside Commode Transfer Technique Stand Step Pivot Devices Transfer Assistive Devices Gait Belt Front Wheeled Walker Comments Mobility Comments Pt needing to use BUE on armrests to stand and MODA to stand. ARIN with FWW for balance and help get back to the bed. MOD to help get legs back into the bed. OT- Balance Assessment Sitting Balance and Reactions Static Sitting Balance Ability Normal Dynamic Sitting Balance Ability Good M8 OT- IP Objective Assessments Start: 03/17/18 13:37 Freq: Status: Active Protocol: Document 03/18/18 14:25 [facility] (Rec: 03/18/18 14:45 [facility] [email or web address]) OT Gross Range of Motion Upper Extremity Range of Motion ROM Impairments WFL for transfers. M9 OT- IP Assessment and Plan Start: 03/17/18 13:37 Freq: Status: Active Protocol: Document 03/18/18 14:25 [facility] (Rec: 03/18/18 14:45 [facility] [email or web address]) OT Summary Assessment and Plan Potential Rehabilitation Potential Good Analytic Complexity at Evaluation Low Summary OT Impairments Pain Strength Balance Functional Cognition Functional Mobility Grooming Dressing Toileting Bathing Toilet Transfers Shower Transfers Progress Towards Goals Slow Progress due to Pain Slow Progress due to Activity Tolerance Slow Progress due to Cognition Assessment Summary Pt Low complexity and at this time needing one person assist for ADl's and functional mobility. Pt still groogy and noted decreased safety awareness and recall of back precautions. Pt may benefit from skilled rehab pending caregiving training with pt's friend. Goals Grooming Goal Standby Assistance Dressing Goal Contact Guard Assistance Toileting Goal Contact Guard Assistance Bathing Goal Minimal Assistance Toilet Transfer Goal Standby Assistance Shower Transfer Goal Minimal Assistance Patient/Caregiver Education Goal Demonstrate Post-Op Precautions Caregiver Independent Assisting Patient Days to Meet Goals 5 Frequency of Treatment Frequency Of Treatment Once a Day Treatment Plan OT Treatment Plan ADL Training Functional Cognition Training Functional Mobility Patient/Family Education Discharge Planning Other Treatment Recommendations and Next Family training with friend. Treatment Focus Showering. Discharge Recommendations OT Discharge Recommendations Home with 24/7 Assist SNF Rehab Home Equipment Needs Tub bench.
[2018-03-18] MEDS: DEXAMETHASONE 4 MG TABLET PO ×2 (15:06→21:04)
--- NOTE | 2018-03-18 15:13 | PT.IPTN ---
Current Diagnoses Acute posthemorrhagic anemia (03/16/18) Spondylolisthesis, lumbar region (03/16/18) Other spondylosis with radiculopathy, lumbar region (03/16/18) Spinal stenosis, lumbar region without neurogenic claudication (03/16/18) Surgery Performed Operation Date: 03/16/18 11:15 Actual Procedures p L4-5, L5-S1 TLIF w/ Posterior Instrumentation(Not Applicable) - Jessica Houser MD Physical Therapy Treatment Note M2 PT-IP Current Condition Start: 03/17/18 10:29 Freq: NEEDED Status: Active Protocol: Document 03/17/18 16:10 [facility] (Rec: 03/17/18 17:12 AB [id number]) Physical Therapy Current Condition Current Condition Evaluation Date 03/17/18 Treatment Diagnosis s/p L4-L5, L5S1 fusion and laminectomy; difficulty in walking Onset Date 03/17/18 Precautions Lumbar Precautions Log Roll No Twisting Limit Bending Lifting Restriction of 10 lbs Gait Belt above Incisional Area M3 PT-IP Subjective Start: 03/17/18 10:29 Freq: NEEDED Status: Active Protocol: Document 03/18/18 15:09 [facility] (Rec: 03/18/18 15:13 [facility] [email or web address]) Subjective Physical Therapy Visit Type Type Treatment Note Visit Start Time 14:40 Visit Stop Time 15:05 Total Visit Minutes 25 Number of SUBSTATION ELECTRICIAN SUPERVISOR Visits 2 Physical Therapy Visit Comments Patient Comments Pt states she feeling better. Therapy Pain Assessment Pain When Pain Assessed At Rest Pain Present Pain Present Denied Pain M4 PT-IP Mobility and Gait Start: 03/17/18 10:29 Freq: NEEDED Status: Active Protocol: Document 03/18/18 15:09 [facility] (Rec: 03/18/18 15:13 [facility] [email or web address]) PT-Bed Mobility Assessment Rolling Type of Rolling Log Rolling Level of Assist Contact Guard Assistance Supine to Sit Supine to Sit Moderate Assistance 1 Person Assistance Scooting Scooting to Edge of Bed Minimal Assistance PT-Transfer Assessment Sit to and From Stand Sit to and from Stand Moderate Assistance 1 Person Assistance Use of Upper Extremities Equipment Transfer Assistive Device Gait Belt Front Wheeled Walker Orthotic/Prosthetic Devices or Brace: No Transfers Transfer Destination Chair Transfer Ability Level of Assist Moderate Assistance 1 Person Assistance Gait Assessment Gait Gait Assistance Required: Minimum Assistance 1 Person Assist Distance (Feet) 40 Able to Maintain Weight Bearing Status Yes During Gait Assistive Devices Assistive Device Gait Belt Front Wheeled Walker Gait Deviations General Gait Pattern Decreased Stride Length Decreased Feet Clearance Step-to Gait Factors Limiting Gait Function Factors Limiting Gait Function Decreased Activity Tolerance Decreased Sensation Decreased Strength Pain Poor Balance Poor Safety Awareness M5 PT-IP Objective Assessments Start: 03/17/18 10:29 Freq: NEEDED Status: Active Protocol: Document 03/17/18 16:10 [facility] (Rec: 03/17/18 17:12 AB [id number]) Orientation Orientation/Cognition Level of Alertness Alert Orientation Name Age Birthday Month Date Year Day of Week Place Situation Gross Range of Motion Lower Extremity ROM Assessment Within Functional Limits Strength Lower Extremity Strength Assessment Left Impaired Knee 3-/5 Sensation Assessment Sensation Gross Sensation Right LE Impaired Left LE Impaired Sensation Description Numbness Tingling Comments Sensation Comments c/o R knee, foot and toe numbness/tingling and bilateral quads numbness M6 PT-IP Treatment Start: 03/17/18 10:29 Freq: NEEDED Status: Active Protocol: Document 03/18/18 15:09 [facility] (Rec: 03/18/18 15:13 [facility]GD [email or web address]) Physical Therapy Treatment Education Education Provided Precautions Safety M7 PT-IP Assessment and Plan Start: 03/17/18 10:29 Freq: NEEDED Status: Active Protocol: Document 03/18/18 15:09 [facility] (Rec: 03/18/18 15:13 [facility]GD [email or web address]) PT Summary Assessment and Plan Summary Assessment Summary Pt need mod a for bed mobility and sit to stand. She need cues for full log roll. She is unsteady with gait and L knee buckling. She has heavy use of UE on FWW. Frequency of Treatment Frequency Of Treatment Twice a Day Treatment Plan Other Recommendations and Next Treatment ambulation, LE strengthening, Focus carefiver training Recommendations To Nursing Amount of Assist Needed 2 Person Assist Discharge Recommendations PT Discharge Recommendations Home with 07/12 Assist
--- NOTE | 2018-03-18 16:26 | PC.NURSE ---
Ortho: Difficult day for her today. First lots of pain after surgery, then yesterday evening she got sleepy from her routine meds and oxycodone, needing O2, cont pulse ox, ect. Pt decided to decrease her oxycodone to 5mg a dose and tonight - only take plain tylenol w/routine meds and see if that works for pain as well as she won't be to sleepy. Have been able to wean off the O2 and no longer needs to wear cont pulse ox. Has been amb x2, in the chair x2. Started some steroids and she feels they have really helped to decrease the amt of pain meds needed. Sl nausea earlier, received zofran and same was effective. BP down to 102 sys, pt reports she is usually much higher. BP meds held and YANICK Montoya was notified. Hopefully will have a better day tomorrow.
[2018-03-18] MEDS: MIRTAZAPINE 15 MG TABLET 30 MG PO (21:04)
[2018-03-18] MEDS: SENNOSIDES 8.6 MG TABLET 17.2 MG PO (21:05)
[2018-03-18] MEDS: TRAZODONE 50 MG TABLET PO (21:05)
[2018-03-18] MEDS: GABAPENTIN 600 MG TABLET 1200 MG PO (21:05)
[2018-03-19 01:44] VITALS: BP 117/71; PULSE 87; RESP 16; TEMP 37.1; O2SAT 98
--- NOTE | 2018-03-19 04:59 | PC.NURSE ---
Pt is A and O x 4, VSS. Pt has been sleeping well this shift, but easily arousable and O2 sat in mid 90's on RABruce Elias out at 0600.
[2018-03-19] MEDS: PANTOPRAZOLE 20 MG TABLET PO (05:32)
[2018-03-19] MEDS: DEXAMETHASONE 4 MG TABLET PO (05:32)
[2018-03-19 06:07] VITALS: BP 133/77; PULSE 78; RESP 16; TEMP 36.6; O2SAT 98
[2018-03-19 07:33] LABS: Hematocrit 29.8 % (36-46); Hemoglobin 9.8 g/dL (12.0-16.0)
[2018-03-19 08:00] VITALS: BP 120/70; PULSE 72; RESP 16; TEMP 36.4; O2SAT 98
[2018-03-19] MEDS: ACETAMINOPHEN 325 MG TABLET 650 MG PO ×2 (08:41→14:41)
[2018-03-19] MEDS: DOCUSATE 100 MG CAPSULE PO (08:46)
[2018-03-19] MEDS: SUCRALFATE 1 GM TABLET PO ×2 (08:46→14:41)
[2018-03-19] MEDS: SODIUM CHLORIDE 0.9% FLUSH 10 ML IV (08:46)
[2018-03-19] MEDS: ENALAPRIL 20 MG TABLET PO (08:46)
[2018-03-19] MEDS: GABAPENTIN 600 MG TABLET PO ×2 (08:46→14:41)
--- NOTE | 2018-03-19 10:46 | PM.DS.1 ---
History of Present Illness Date Patient Seen: 03/19/18 Time Patient Seen: 10:46 Chief complaint: [id number] Narrative: Pain mild to moderate. Denies fever chills. Otherwise without complaints. Discharge Providers Date of admission: 03/16/18 09:13 Primary care physician: Carroll Hayden MD Consults: 03/16/18 17:20 Consult to Occupational Therapy Evaluate & Treat Comment: Physician Instructions: Evaluate and treat Consult to Physical Therapy Evaluate & Treat Comment: Physician Instructions: Evaluate and Treat Discharge provider: Tio Norris PA-C Discharge Date: 03/19/18 Summary Discharge Diagnosis: status post: Hospital Course: Patient has been having chronic back pain and worsening lumbar radiculopathy. Patient failed multiple conservative management with worsening pain weakness and numbness in her lower extremity. Patient has been having difficulty performing activity of daily living. After discussing risks benefits of treatment options, patient elected proceed with surgery. Estimated blood loss 100 mL. General anesthesia was administered. Tisseel fibrin glue was obtained and placed over the dural defect after laminectomy was completed. Patient was slow to mobilize secondary to dural defect. Patient was able to ambulate out in the [place] this morning with physical therapy. Patient has remained stable and recovering well. Status at Discharge Functional status at discharge: uses cane/walker Overall status at discharge: patient is progressing back to baseline Time Spent with Patient Less than 30 minutes Exam Vital Signs (past 8 hours): - 03/19/18 06:07 03/19/18 08:00 Temperature 97.8 F 97.6 F Pulse Rate 78 72 Respiratory Rate 16 16 Blood Pressure 133/77 120/70 Pulse Oximetry 98 98 Oxygen Delivery Method Room Air Oxygen Flow Rate 1 Narrative Exam Narrative: Pleasant 63-year-old female sitting comfortably in bedside chair in no apparent distress. Lumbar dressing is clean, dry and intact. Sensation grossly intact to light touch bilateral lower extremities however slightly diminished on the right lateral foot. This is unchanged since prior to surgery. Motor functions intact distal bilateral lower extremities. Objective Labs Result Diagrams: 03/19/18 06:25 Labs: Laboratory Results - last 24 hr 03/19/18 06:25 Hgb 9.8 L Hct 29.8 L Discharge Plan Discharge Plan Patient Disposition: Home Discharge comment: Discharge home today Discharge Med Rec/Prescriptions Prescriptions: New acetaminophen 325 mg Tablet 650 mg PO Q6HR PRN (Reason: Pain, Mild (1-3)) Qty: 60 RF: 0 hydroxyzine pamoate 25 mg Capsule 25 mg PO Q4HR PRN (Reason: Nausea And Vomiting) Qty: 30 RF: 0 oxycodone 5 mg tablet 5 mg PO Q4-6H PRN (Reason: pain) Qty: 60 RF: 0 Continue amlodipine [Norvasc] 5 MG tablet 5 mg PO QDAY Qty: 0 RF: 0 trazodone 50 MG tablet 50 mg PO HS Qty: 0 RF: 0 dicyclomine 20 MG tablet 20 mg PO TIDP PRN (Reason: IBS) Qty: 0 RF: 0 lubiprostone [Amitiza] 8 MCG capsule 8 mcg PO BID Qty: 0 RF: 0 sucralfate 1 GM tablet 1 tab PO QID Qty: 0 RF: 0 gabapentin [Neurontin] 600 MG tablet 2,400 mg PO SEE INSTRUCTIONS Qty: 0 RF: 0 enalapril maleate 20 MG tablet 20 mg PO QDAY Qty: 0 RF: 0 mirtazapine 30 MG tablet 30 mg PO HS Qty: 0 RF: 0 omeprazole 20 MG tablet,delayed release (DR/EC) 20 mg PO QDAY Qty: 0 RF: 0 aspirin 325 MG tablet 325 mg PO QDAY Qty: 0 RF: 0 vitamin E 400 UNIT capsule 400 unit PO QDAY Qty: 0 RF: 0 cholecalciferol (vitamin D3) [Vitamin D3] 2,000 UNIT tablet 1 tab PO QDAY Qty: 0 RF: 0 calcium carbonate 600 MG tablet 600 mg PO QAM PRN (Reason: Indigestion) Qty: 0 RF: 0 omega 9-ycz-gia-fish oil [Fish Oil] 1,000 MG capsule 2,000 mg PO QAM Qty: 0 RF: 0 Discontinued naproxen sodium [Aleve] 220 MG tablet 2 tab PO BID Qty: 0 RF: 0 Follow up/Referrals: Carroll Hayden MD [Primary Care Provider] - Jessica Houser MD [Physician] - 2 Weeks Provider Discharge Instructions Diet: Diet as Tolerated Activity: Limited bending, lifting, twisting Cold/Heat Therapy: Apply ice as needed Skin/Wound/Dressing Care Report to your healthcare provider any signs of infection, such as:: chills, fever, night sweats, increased pain and unusual drainage Dressing: Keep dressing clean and dry Discharge Data Primary Care Provider: Carroll Hayden Attending Provider: Jessica Houser Admit Date/Time: 03/16/18 09:13 Quality VTE Deep Vein Thrombosis/Pulmonary Embolism Present on Admission: No
--- NOTE | 2018-03-19 11:11 | PC.NURSE ---
Addendum entered by Hamida Montgomery R.N. 03/19/18 15:48: 1500 Pt discharged to Private vehicle with daughter. Original Note: Addendum entered by Hamida Montgomery R.N. 03/19/18 14:43: Pt up to shower, able to void 300 mls PT cleared for d/c, await daughter arrival. Apap effective for pain. Original Note: 1110am -Notified Daughter Stephanie of POC to d/c when able to void and PT clears.
--- NOTE | 2018-03-19 11:20 | PT.IPTN ---
Current Diagnoses Acute posthemorrhagic anemia (03/16/18) Spondylolisthesis, lumbar region (03/16/18) Other spondylosis with radiculopathy, lumbar region (03/16/18) Spinal stenosis, lumbar region without neurogenic claudication (03/16/18) Surgery Performed Operation Date: 03/16/18 11:15 Actual Procedures p L4-5, L5-S1 TLIF w/ Posterior Instrumentation(Not Applicable) - Jessica Houser MD Physical Therapy Treatment Note M2 PT-IP Current Condition Start: 03/17/18 10:29 Freq: NEEDED Status: Active Protocol: Document 03/17/18 16:10 AB (Rec: 03/17/18 17:12 AB [id number]) Physical Therapy Current Condition Current Condition Evaluation Date 03/17/18 Treatment Diagnosis s/p L4-L5, L5S1 fusion and laminectomy; difficulty in walking Onset Date 03/17/18 Precautions Lumbar Precautions Log Roll No Twisting Limit Bending Lifting Restriction of 10 lbs Gait Belt above Incisional Area M3 PT-IP Subjective Start: 03/17/18 10:29 Freq: NEEDED Status: Active Protocol: Document 03/19/18 11:20 [facility] (Rec: 03/19/18 13:04 [facility] [email or web address]) Subjective Physical Therapy Visit Type Type Treatment Note Visit Start Time 10:55 Visit Stop Time 11:20 Total Visit Minutes 25 Number of QUALITY ASSURANCE ANALYST Visits 3 Physical Therapy Visit Comments Patient Comments Pt states she feels ready to D /C home. Therapy Pain Assessment Pain When Pain Assessed At Rest Pain Present Pain Present Denied Pain Location Back Intensity 5 Scale Used Numeric (1 - 10) M4 PT-IP Mobility and Gait Start: 03/17/18 10:29 Freq: NEEDED Status: Active Protocol: Document 03/19/18 11:20 [facility] (Rec: 03/19/18 13:04 [facility] [email or web address]) PT-Bed Mobility Assessment Rolling Type of Rolling Log Rolling Level of Assist Contact Guard Assistance Supine to Sit Supine to Sit Minimal Assistance 1 Person Assistance Scooting Scooting to Edge of Bed Standby Assistance PT-Transfer Assessment Sit to and From Stand Sit to and from Stand Contact Guard Assistance 1 Person Assistance Use of Upper Extremities Equipment Transfer Assistive Device Gait Belt Front Wheeled Walker Orthotic/Prosthetic Devices or Brace: No Transfers Transfer Destination Bed Transfer Ability Level of Assist Contact Guard Assistance Comments Mobility Comments fountain supervisor training for bed mobility and stair mobility. Caregiver safe to assist with bed mobility. Gait Assessment Gait Gait Assistance Required: Contact Guard Assist 1 Person Assist Distance (Feet) 150 Able to Maintain Weight Bearing Status Yes During Gait Assistive Devices Assistive Device Gait Belt Front Wheeled Walker Gait Deviations General Gait Pattern Decreased Stride Length Decreased Feet Clearance Step-to Gait Factors Limiting Gait Function Factors Limiting Gait Function Decreased Activity Tolerance Decreased Sensation Decreased Strength Pain Poor Balance Poor Safety Awareness Stair Climbing Assessment Evaluation Level of Assist On Stairs Contact Guard Assistance Devices Stair Climbing Assistive Devices Front Wheel Walker Technique/Endurance Stair Climbing Direction Ascend and Descend Stair Climbing Technique Step to Step Number of Steps Climbed 1 Query Text: Stair Climbing Set # Repetitions (reps) 1 M5 PT-IP Objective Assessments Start: 03/17/18 10:29 Freq: NEEDED Status: Active Protocol: Document 03/17/18 16:10 AB (Rec: 03/17/18 17:12 AB [id number]) Orientation Orientation/Cognition Level of Alertness Alert Orientation Name Age Birthday Month Date Year Day of Week Place Situation Gross Range of Motion Lower Extremity ROM Assessment Within Functional Limits Strength Lower Extremity Strength Assessment Left Impaired Knee 3-/5 Sensation Assessment Sensation Gross Sensation Right LE Impaired Left LE Impaired Sensation Description Numbness Tingling Comments Sensation Comments c/o R knee, foot and toe numbness/tingling and bilateral quads numbness M6 PT-IP Treatment Start: 03/17/18 10:29 Freq: NEEDED Status: Active Protocol: Document 03/19/18 11:20 [facility] (Rec: 03/19/18 13:04 [facility] [email or web address]) Physical Therapy Treatment Education Education Provided Precautions Safety Other Treatments Other Treatment Performed Caregiver training for bed mobility, stairs and LBK precautions. M7 PT-IP Assessment and Plan Start: 03/17/18 10:29 Freq: NEEDED Status: Active Protocol: Document 03/19/18 11:20 [facility] (Rec: 03/19/18 13:04 [facility] [email or web address]) PT Summary Assessment and Plan Summary Assessment Summary Pt improving with mobility and gait. She was safe and stable with gait and stair mobility. She had no knee buckling with gait or stairs. She improved with sit to stand. Caregiver was able to safely assist pt with bed mobility. Frequency of Treatment Frequency Of Treatment Twice a Day Treatment Plan Other Recommendations and Next Treatment ambulation, LE strengthening, Focus carefiver training Recommendations To Nursing Amount of Assist Needed 1 Person Assist Discharge Recommendations PT Discharge Recommendations Home with Assistance
[2018-03-19 13:00] VITALS: BP 128/73; PULSE 69; RESP 16; TEMP 36.4; O2SAT 99
--- NOTE | 2018-03-19 13:51 | OT.IP.TRT ---
Current Diagnoses Acute posthemorrhagic anemia (03/16/18) Spondylolisthesis, lumbar region (03/16/18) Other spondylosis with radiculopathy, lumbar region (03/16/18) Spinal stenosis, lumbar region without neurogenic claudication (03/16/18) Surgery Performed Operation Date: 03/16/18 11:15 Actual Procedures p L4-5, L5-S1 TLIF w/ Posterior Instrumentation(Not Applicable) - Jessica Houser MD Occupational Therapy Treatment Note M2 OT-IP Current Condition Start: 03/17/18 13:37 Freq: Status: Active Protocol: Document 03/18/18 14:25 [facility] (Rec: 03/18/18 14:45 [facility] [id number]) Occupational Therapy Current Condition Current Condition Evaluation Date 03/18/18 Treatment Diagnosis S/P L4-S1 PLIF Diagnosis Onset Date 03/16/18 Post Operative Precautions Lumbar Precautions Log Roll No Twisting Limit Bending Lifting Restriction of 10 lbs Gait Belt above Incisional Area M3 OT- IP Subjective and Pain Start: 03/17/18 13:37 Freq: Status: Active Protocol: Document 03/19/18 13:43 [facility] (Rec: 03/19/18 13:50 [facility] [id number]) OT- Subjective Occupational Therapy Visit Type Type Treatment Note Visit Start Time 12:00 Visit Stop Time 12:25 Total Visit Minutes 25 Occupational Therapy Visit Comments Patient Comments Pt's friend here for training. OT Pain Assessment Pain When Pain Assessed At Rest Pain Present Pain Present Denied Pain M4 OT- IP ADL's Start: 03/17/18 13:37 Freq: Status: Active Protocol: Document 03/19/18 13:43 [facility] (Rec: 03/19/18 13:50 [facility] [id number]) OT ADL-Toileting General Evaluation Toileting Ability Standby Assistance Comments OT Toileting Comments Pt's friend able to assist for toileting needs with good safety. OT ADL-Bathing Bathing Type Bathing Type Shower General Evaluation Bathing Ability Minimal Assistance Devices Bathing Equipment Hand Held Shower Sprayer Shower Chair with Arms Grab Bars Comments OT Bathing Comments Pt's friend able to show good safety to assist pt for all showering needs. M6 OT- IP Functional Cognition Start: 03/17/18 13:37 Freq: Status: Active Protocol: Document 03/19/18 13:43 [facility] (Rec: 03/19/18 13:50 [facility] [id number]) Cognitive Factors Limiting Selfcare Function Cognitive Ability Level of Alertness Alert Patient Orientation Name Place Situation Attention Span Ability Capable of Focused Attention Capable of Sustained Attention Ability to Follow Commands Able to Follow Multi-Step Commands Memory Description No Deficits Noted Safety Awareness Decreased Ability to Apply Precautions Cognitive Comments Cognitive Assessment Comments Pt thinking much better today but still needing some vc to incorporate back precautions. M7 OT- IP Mobility and Balance Start: 03/17/18 13:37 Freq: Status: Active Protocol: Document 03/19/18 13:43 [facility] (Rec: 03/19/18 13:50 [facility] [id number]) OT- Bed Mobility Assessment Rolling Type of Rolling Roll to Left Level of Assistance Standby Assistance Supine to Sit Supine to Sit Assist Standby Assistance OT-Transfer Assessment Sit to and From Stand Sit to and from Stand Standby Assistance Contact Guard Assistance Transfers Transfer Ability Standby Assistance Contact Guard Assistance Technique Transfer Destination Bed Chair Toilet Devices Transfer Assistive Devices Gait Belt Front Wheeled Walker Comments Mobility Comments Pt's friend able to assist for all bed mobility and transfer needs with good safety. M8 OT- IP Objective Assessments Start: 03/17/18 13:37 Freq: Status: Active Protocol: Document 03/18/18 14:25 [facility] (Rec: 03/18/18 14:45 [facility] [id number]) OT Gross Range of Motion Upper Extremity Range of Motion ROM Impairments WFL for transfers. M9 OT- IP Assessment and Plan Start: 03/17/18 13:37 Freq: Status: Active Protocol: Document 03/19/18 13:43 [facility] (Rec: 03/19/18 13:50 [facility] [id number]) OT Summary Assessment and Plan Potential Rehabilitation Potential Excellent Analytic Complexity at Evaluation Low Summary Progress Towards Goals Progressing Toward Goals Assessment Summary Pt doing much better today and friend present for all training for ADl's and functional mobility and able to show good understanding and safety. Pt to go home when medically stable. Goals Grooming Goal Independent Dressing Goal Standby Assistance Toileting Goal Independent Bathing Goal Standby Assistance Toilet Transfer Goal Independent Shower Transfer Goal Contact Guard Assistance Patient/Caregiver Education Goal Demonstrate Post-Op Precautions Caregiver Independent Assisting Patient Days to Meet Goals 1 Frequency of Treatment Frequency Of Treatment Once a Day Discharge Recommendations OT Discharge Recommendations Home with 07/12 Assist
--- NOTE | 2018-03-20 09:25 | CM.DPC ---
DCP: continued: late entry for yesterday. Case received, EMR reviewed and d/c to home order noted. Pt worked with PT and OT and pt's friend Ag worked along with pt and the therapists for caregiver training. Pt was ok'd for home to Ag's house and she left in early afternoon.
== END 2018-03-19 15:00 | disposition home or self-care (01) | DRG 454 ==
PROVIDERS: Physician Assistant; Admitting Provider Orthopaedic Surgery Orthopaedic Surgery of the Spine; PCP Family Medicine; Visit Provider Orthopaedic Surgery Orthopaedic Surgery of the Spine
PROC: 0SG00AJ Fusion of Lumbar Vertebral Joint with Interbody Fusion Device, Posterior Approach, Anterior Column, Open Approach (ICD-10-PCS; principal; 2018-03-16 11:15)
DX: M43.16 Spondylolisthesis, lumbar region (principal); G97.41 Accidental puncture or laceration of dura during a procedure; M48.061 Spinal stenosis, lumbar region without neurogenic claudication; M47.26 Other spondylosis with radiculopathy, lumbar region; I10 Essential (primary) hypertension; K21.9 Gastro-esophageal reflux disease without esophagitis; F32.9 Major depressive disorder, single episode, unspecified; F17.210 Nicotine dependence, cigarettes, uncomplicated
CPT/HCPCS: 36415; 72100; 76001; 85014; 85018; 94760; 97116; 97162; 97165; 97530; 97535; C1776; C9290; J0131; J0330; J1100; J1170; J2250; J2405; J2704; J3010

== ENCOUNTER 2018-03-31 07:14 | Day surgery (SDC) | payer OTHER, SELFPAY ==
[2018-03-16 17:45] VITALS: BMI 24.5
[2018-03-31 07:30] VITALS: BP 134/77; PULSE 67; RESP 16; TEMP 36.4; O2SAT 98; BMI 24.2
[2018-03-31] MEDS: MIDAZOLAM 2 MG/2 ML VIAL IV (08:13)
[2018-03-31 08:18] VITALS: BP 106/56; PULSE 69; RESP 20; O2SAT 97
[2018-03-31 08:23] VITALS: BP 95/59; PULSE 69; RESP 20; O2SAT 96
--- NOTE | 2018-03-31 08:25 | SUR.PREOP ---
pt was given versed prior to blood patch procedure per Dr. Scott. pt on monitor and pulse ox. pt's vital signs monitored. Dr. Scott placed bandaid on back . and pt awake and alert. .
[2018-03-31 08:28] VITALS: BP 100/52; PULSE 69; RESP 18; O2SAT 14
--- NOTE | 2018-03-31 08:29 | SUR.PREOP ---
Blood patch procedure performed in procedure room. Pt received 2 mg Versed IV per Dr. Vail's order. Pt was assisted with positioning by JOLENE Lynn. I gauri 9cc pt's blood from Left hand PIV which was given to Dr. Vail for the blood patch procedure. Pt became sleepy with Versed but could answer questions. After procedure was completed pt was placed on monitors and moved to Bed [address] Vail placed a band aid over the site. Band aid clean dry and intact. VSS.
--- NOTE | 2018-03-31 08:32 | SUR.PREOP ---
pt is resting quietly and denies pain. bandaid is clean and dry.
--- NOTE | 2018-03-31 08:36 | PM.CN ---
History of Present Illness Date Patient Seen: 03/31/18 Time Patient Seen: 07:45 Chief complaint: BACK PATCH Reason for consult: Post surgical CSF leak s/p Lumbar Fusion Requesting provider: Jessica Houser Narrative: Pt is s/p lumbar spine fusion 2 weeks ago. She has a know intra operative dural tear that was repaired surgically at the time of her operation. Her headache failed to respond to conservative therapy. Dr. Houser is asling me to do an epidural blood patch to see if it can darleen her symptoms in an effort to avoid re operating on her dural tear. [facility] Medical History Chronic back pain (Acute) Constipation (Acute) Depression (Acute) GERD (gastroesophageal reflux disease) (Acute) HTN (hypertension) (Acute) Hiatal hernia (Acute) Hyperlipidemia (Acute) IBS (irritable bowel syndrome) (Acute) Migraines (Acute) Llamas's neuroma of both feet (Acute) Numbness and tingling of both legs (Acute) Surgical History History of arthroscopy of left shoulder (Acute) History of bilateral tubal ligation (Acute) Hx of LASIK (Acute) Hx of repair of left rotator cuff (Acute) Hx of tonsillectomy (Acute) Social History household members: none Smoking Status: Former smoker alcohol intake: never Meds Home Medications Medication Instructions Recorded Confirmed Type amlodipine [Norvasc] 5 mg PO QDAY #0 04/30/17 03/16/18 History aspirin 325 mg PO QDAY #0 04/30/17 03/16/18 History dicyclomine 20 mg PO TIDP PRN #0 04/30/17 03/16/18 History enalapril maleate 20 mg PO QDAY #0 04/30/17 03/16/18 History gabapentin [Neurontin] 2,400 mg PO SEE INSTRUCTIONS #0 04/30/17 03/16/18 History lubiprostone [Amitiza] 8 mcg PO BID #0 04/30/17 03/16/18 History mirtazapine 30 mg PO HS #0 04/30/17 03/16/18 History omeprazole 20 mg PO QDAY #0 04/30/17 03/16/18 History sucralfate 1 tab PO QID #0 04/30/17 03/16/18 History trazodone 50 mg PO HS #0 04/30/17 03/16/18 History calcium carbonate 600 mg PO QAM PRN #0 05/03/17 03/16/18 History cholecalciferol (vitamin D3) 1 tab PO QDAY #0 05/03/17 03/16/18 History [Vitamin D3] omega 4-qrp-hrj-fish oil [Fish Oil] 2,000 mg PO QAM #0 05/03/17 03/16/18 History vitamin E 400 unit PO QDAY #0 05/03/17 03/16/18 History acetaminophen 650 mg PO Q6HR PRN #60 tab 03/19/18 Rx hydroxyzine pamoate 25 mg PO Q4HR PRN #30 cap 03/19/18 Rx oxycodone 5 mg PO Q4-6H PRN #60 tab 03/19/18 Rx Allergies Allergy/AdvReac Type Severity Reaction Status Date / Time Penicillins [PENICILLINS] Allergy Unknown PT THINKS Verified 03/16/18 09:49 HIVES, PT UNSURE erythromycin base AdvReac Severe I PASSED Verified 03/16/18 09:49 [ERYTHROMYCIN BASE] OUT AFTER THEY GAVE ME A SHOT Qbryxzr-Dlp-Ldh Reductase AdvReac Severe LEG CRAMPS Verified 03/16/18 09:49 Inhibitor [[id number] REDUCTASE INHIBITOR] Review of Systems Review of Systems All systems reviewed & are unremarkable except as noted in HPI and below Constitutional Comments: Postural headache that improves laying supine. ENT Ears, Nose, Mouth, and Throat: Yes dry mouth Cardiovascular Comments: wnl Respiratory Comments: wnl Gastrointestinal Comments: no bowel or bladder incontinence. Musculoskeletal Comments: weakness right LL Neurologic Comments: decreased sensation on the right L4/5 dermatome. Perceived weakness in that leg as well. Exam Vital Signs (past 8 hours): - 03/31/18 07:30 03/31/18 08:18 03/31/18 08:23 Temperature 97.6 F Pulse Rate 67 69 69 Respiratory Rate 16 20 20 Blood Pressure 134/77 106/56 L 95/59 L Pulse Oximetry 98 97 96 03/31/18 08:28 Temperature Pulse Rate 69 Respiratory Rate 18 Blood Pressure 100/52 L Pulse Oximetry 14 L Oxygen Delivery Method Room Air Narrative Exam Narrative: 62 y/o femal with obvious headache and discomfort in the upright position. She is a reasonably good historian [facility] Head: normal to inspection, normocephalic and atraumatic Ears: hearing grossly normal bilaterally Mouth: tongue abnormal (very dry mucous membranes) Eyes Direct ophthalmoscopy: normal light reflex Other: PERRLA Neck Neck: JVD (negative JVD) Thyroid: thyroid normal Carotids: normal carotid upstroke Resp Effort & Inspection: normal respiratory effort Auscultation: clear to auscultation bilaterally Cardio Palpation: normal PMI Rate: regular rate Rhythm: regular rhythm Heart Sounds: S1 normal and S2 normal Pulses: radial pulses present Back/Spine/Pelvis Other: Two well healed surgical incisions approx 10 cm in length on either side of midline. No erythema or drainage Skin General: no rashes or lesions noted, elasticity normal, turgor normal and scars Neuro Cranial Nerves: CN's II-XI intact bilaterally, tongue midline, hearing normal and able to rotate head bilaterally Cognition: normal cognition Speech: speech normal Motor: muscle tone normal throughout Other: decreased sensation to touch right lower extremity. 4/5 motor strength extension at the knee 5/5 Plantar and dorsiflexion. Assessment & Plan Plan: Assessment/Plan Narrative: 62 y/o female with a known repaired dural tear with persistent CSF leak. We discussed the risks and benefits of an epidural blood patch including infection and re-injuring the dura. Consent for the procedure was obtained from patient.
[2018-03-31 08:43] VITALS: BP 111/64; PULSE 70; RESP 18; O2SAT 96
--- NOTE | 2018-03-31 08:46 | SUR.PREOP ---
pt awake and alert. denies any complaints and states she feels much better. sitting up and drinking coffee and eating crackers.
[2018-03-31 08:50] VITALS: BP 111/64; PULSE 71; RESP 18; O2SAT 96
--- NOTE | 2018-03-31 08:56 | P.CONS_ITS ---
History of Present Illness Date Patient Seen: 03/31/18 Time Patient Seen: 07:45 Chief complaint: BACK PATCH Reason for consult: Post surgical CSF leak s/p Lumbar Fusion Requesting provider: Jessica Houser Narrative: Pt is s/p lumbar spine fusion 2 weeks ago. She has a know intra operative dural tear that was repaired surgically at the time of her operation. Her headache failed to respond to conservative therapy. Dr. Houser is asling me to do an epidural blood patch to see if it can darleen her symptoms in an effort to avoid re operating on her dural tear. [facility] Medical History Chronic back pain (Acute) Constipation (Acute) Depression (Acute) GERD (gastroesophageal reflux disease) (Acute) HTN (hypertension) (Acute) Hiatal hernia (Acute) Hyperlipidemia (Acute) IBS (irritable bowel syndrome) (Acute) Migraines (Acute) Llamas's neuroma of both feet (Acute) Numbness and tingling of both legs (Acute) Surgical History History of arthroscopy of left shoulder (Acute) History of bilateral tubal ligation (Acute) Hx of LASIK (Acute) Hx of repair of left rotator cuff (Acute) Hx of tonsillectomy (Acute) Social History household members: none Smoking Status: Former smoker alcohol intake: never Meds Home Medications Medication Instructions Recorded Confirmed Type amlodipine [Norvasc] 5 mg PO QDAY #0 04/30/17 03/16/18 History aspirin 325 mg PO QDAY #0 04/30/17 03/16/18 History dicyclomine 20 mg PO TIDP PRN #0 04/30/17 03/16/18 History enalapril maleate 20 mg PO QDAY #0 04/30/17 03/16/18 History gabapentin [Neurontin] 2,400 mg PO SEE INSTRUCTIONS #0 04/30/17 03/16/18 History lubiprostone [Amitiza] 8 mcg PO BID #0 04/30/17 03/16/18 History mirtazapine 30 mg PO HS #0 04/30/17 03/16/18 History omeprazole 20 mg PO QDAY #0 04/30/17 03/16/18 History sucralfate 1 tab PO QID #0 04/30/17 03/16/18 History trazodone 50 mg PO HS #0 04/30/17 03/16/18 History calcium carbonate 600 mg PO QAM PRN #0 05/03/17 03/16/18 History cholecalciferol (vitamin D3) 1 tab PO QDAY #0 05/03/17 03/16/18 History [Vitamin D3] omega 5-tgz-uye-fish oil [Fish Oil] 2,000 mg PO QAM #0 05/03/17 03/16/18 History vitamin E 400 unit PO QDAY #0 05/03/17 03/16/18 History acetaminophen 650 mg PO Q6HR PRN #60 tab 03/19/18 Rx hydroxyzine pamoate 25 mg PO Q4HR PRN #30 cap 03/19/18 Rx oxycodone 5 mg PO Q4-6H PRN #60 tab 03/19/18 Rx Allergies Allergy/AdvReac Type Severity Reaction Status Date / Time Penicillins [PENICILLINS] Allergy Unknown PT THINKS Verified 03/16/18 09:49 HIVES, PT UNSURE erythromycin base AdvReac Severe I PASSED Verified 03/16/18 09:49 [ERYTHROMYCIN BASE] OUT AFTER THEY GAVE ME A SHOT Faxcqng-Kau-Ptz Reductase AdvReac Severe LEG CRAMPS Verified 03/16/18 09:49 Inhibitor [[id number] REDUCTASE INHIBITOR] Review of Systems Review of Systems All systems reviewed & are unremarkable except as noted in HPI and below Constitutional Comments: Postural headache that improves laying supine. ENT Ears, Nose, Mouth, and Throat: Yes dry mouth Cardiovascular Comments: wnl Respiratory Comments: wnl Gastrointestinal Comments: no bowel or bladder incontinence. Musculoskeletal Comments: weakness right LL Neurologic Comments: decreased sensation on the right L4/5 dermatome. Perceived weakness in that leg as well. Exam Vital Signs (past 8 hours): - 03/31/18 07:30 03/31/18 08:18 03/31/18 08:23 Temperature 97.6 F Pulse Rate 67 69 69 Respiratory Rate 16 20 20 Blood Pressure 134/77 106/56 L 95/59 L Pulse Oximetry 98 97 96 03/31/18 08:28 Temperature Pulse Rate 69 Respiratory Rate 18 Blood Pressure 100/52 L Pulse Oximetry 14 L Oxygen Delivery Method Room Air Narrative Exam Narrative: 62 y/o femal with obvious headache and discomfort in the upright position. She is a reasonably good historian [facility] Head: normal to inspection, normocephalic and atraumatic Ears: hearing grossly normal bilaterally Mouth: tongue abnormal (very dry mucous membranes) Eyes Direct ophthalmoscopy: normal light reflex Other: PERRLA Neck Neck: JVD (negative JVD) Thyroid: thyroid normal Carotids: normal carotid upstroke Resp Effort & Inspection: normal respiratory effort Auscultation: clear to auscultation bilaterally Cardio Palpation: normal PMI Rate: regular rate Rhythm: regular rhythm Heart Sounds: S1 normal and S2 normal Pulses: radial pulses present Back/Spine/Pelvis Other: Two well healed surgical incisions approx 10 cm in length on either side of midline. No erythema or drainage Skin General: no rashes or lesions noted, elasticity normal, turgor normal and scars Neuro Cranial Nerves: CN's II-XI intact bilaterally, tongue midline, hearing normal and able to rotate head bilaterally Cognition: normal cognition Speech: speech normal Motor: muscle tone normal throughout Other: decreased sensation to touch right lower extremity. 4/5 motor strength extension at the knee 5/5 Plantar and dorsiflexion. Assessment & Plan Plan: Assessment/Plan Narrative: 62 y/o female with a known repaired dural tear with persistent CSF leak. We discussed the risks and benefits of an epidural blood patch including infection and re-injuring the dura. Consent for the procedure was obtained from patient.
--- NOTE | 2018-03-31 08:59 | PM.PROC.1 ---
Procedures Date/Time Date of procedure: 03/31/18 Time of procedure: 08:00 General Procedure description: Epidural Blood Patch Pt in the sitting position . Standard ASA monitors applied. Pt was sedated with 2 mg IV Versed. Two RN's with me during the procedure. Sterile prep and drape of the lumbar spine with iodine. 1% Lidocaine used to anesthetize skin and soft tissues. An 18 Ga [employer] needle was advanced using PADMINI technique . Good PADMINI to air. Needle was rotated 180 degrees so the bevel was pointing down. Needle entry was L3/4. 10 cc of patients own blood was drawn up using sterile technique by RN. I was just able to inject all 10 cc of blood when he patient reported her back was becoming achy. At this point I decided not to inject any more blood. Needle was withdrawn and pressure held on needle insertion site for several minutes. No bleeding noted but a bandaid was placed over site. She layed supine for a 1/2 hour. Her headache was completely gone in both supine and upright positions at time of discharge. Complications: none
--- NOTE | 2018-03-31 09:08 | P.PCN_ITS ---
Procedures Date/Time Date of procedure: 03/31/18 Time of procedure: 08:00 General Procedure description: Epidural Blood Patch Pt in the sitting position . Standard ASA monitors applied. Pt was sedated with 2 mg IV Versed. Two RN's with me during the procedure. Sterile prep and drape of the lumbar spine with iodine. 1% Lidocaine used to anesthetize skin and soft tissues. An 18 Ga [employer] needle was advanced using PADMINI technique . Good PADMINI to air. Needle was rotated 180 degrees so the bevel was pointing down. Needle entry was L3/4. 10 cc of patients own blood was drawn up using sterile technique by RN. I was just able to inject all 10 cc of blood when he patient reported her back was becoming achy. At this point I decided not to inject any more blood. Needle was withdrawn and pressure held on needle insertion site for several minutes. No bleeding noted but a bandaid was placed over site. She layed supine for a 1/2 hour. Her headache was completely gone in both supine and upright positions at time of discharge. Complications: none
--- NOTE | 2018-03-31 09:16 | SUR.PHASEII ---
pt never went to phase 1 or phase 2 she had procedure in room 5 and recovered and was d/nayely .
== END 2018-03-31 09:11 ==
LOC: OR 07:16
PROVIDERS: PCP Family Medicine; Visit Provider Anesthesiology
PROC: 3E0R3GC Introduction of Other Therapeutic Substance into Spinal Canal, Percutaneous Approach (ICD-10-PCS; CPT 62273; principal; 2018-03-31 08:30)
DX: G44.89 Other headache syndrome (principal); G97.41 Accidental puncture or laceration of dura during a procedure; Z98.1 Arthrodesis status; M54.9 Dorsalgia, unspecified; I10 Essential (primary) hypertension; E78.5 Hyperlipidemia, unspecified; Z87.891 Personal history of nicotine dependence
CPT/HCPCS: 62273; 77003; J2250

== ENCOUNTER → 2021-04-02 09:31 | Outpatient (CLI) | payer MEDICARE, OTHER, SELFPAY ==
[2018-03-16 17:45] VITALS: BMI 24.5
[2021-04-02 11:15] LABS: COVID19 -Nasal RAPID Negative (Negative)
== END ==
PROVIDERS: PCP Family Medicine; Referring Provider Nurse Practitioner Family; Visit Provider Nurse Practitioner Family
DX: Z20.822 Contact with and (suspected) exposure to COVID-19 (principal)
CPT/HCPCS: 87635; C9803

== ENCOUNTER 2021-04-05 11:23 | Observation (INO) | payer MEDICARE, OTHER, SELFPAY ==
[2018-03-16 17:45] VITALS: BMI 24.5
[2021-03-26 09:27] VITALS: BMI 28.4
[2021-04-04] VITALS (17 sets, daily range): BP systolic 93–155; BP diastolic 35–81; PULSE 70–86; RESP 12–18; TEMP 36.5–36.9; O2SAT 94–100; BMI 28.4
--- NOTE | 2021-04-04 | PATH_ITS ---
[facility] Accession Number: [id number] . 01 Material submitted: . bone - LEFT FEMORAL HEAD . 01 Diagnosis: Left Femoral Head, Total Hip Arthroplasty: Consistent with degenerative joint disease with focal osteonecrosis; see note. . Note: The histologic findings are not entirely specific, however, they are compatible with degenerative joint disease with focal osteonecrosis. Additional considerations could include the site of a prior fracture. There is no evidence of osteomyelitis identified in sections examined. Clinical and radiographic correlation is recommended. [facility] 04/15/2021 1657 Local . 01 Comment: This case has been reviewed by Dr. Adeline King. . 01 Electronically signed: . Jesus Tabares MD, Dermatopathologist NPI- [id number] . 01 Gross description: . The specimen is received in formalin, labeled femoral head, and consists of a 4.5 x 4.0 x 3.0 cm, severely distorted femoral head with a smooth neck margin. The articular surface is granular and irregular. Sectioning reveals spencer to spencer-pink, focally hemorrhagic, trabeculated cut surfaces. Line Person sections are submitted, following decalcification, in cassettes A1-A2. ([id number]) /FRR 04/05/2021 1722 Local . 01 Pathologist provided ICD-10: M87.9 . 01 CPT . 547768, [id number] Performed at: 01 [facility] [address] [place] [address], [place], [place] [id number] MD Carroll Strong MD Phone: [phone]
--- NOTE | 2021-04-04 06:00 | DI.RAD.S_ITS ---
PROCEDURE: XR HIP W PEL IF DONE LT 2V INDICATIONS: postop prosthesis placement TECHNIQUE: 2 views of the hip were acquired. COMPARISON: None. FINDINGS: Bones: No fracture. Post operative changes related to left hip arthroplasty in expected alignment. Mild right hip joint degeneration. Hardware appears intact. Soft tissues: Surgical drain and postsurgical changes noted IMPRESSION: Expected post operative appearance Dictated by: Chris Degroot M.D. on 04/04/2021 at 16:03 Approved by: Chris Degroot M.D. on 04/04/2021 at 16:04
[2021-04-04] MEDS: LACTATED RINGERS 1,000 ML 42 ML IV ×3 (09:19→11:36)
[2021-04-04] MEDS: CELECOXIB 200 MG CAPSULE PO (09:22)
[2021-04-04] MEDS: PREGABALIN 75 MG CAPSULE PO (09:22)
[2021-04-04] MEDS: ACETAMINOPHEN 325 MG TABLET 975 MG PO (09:22)
[2021-04-04] MEDS: VANCOMYCIN 1,000 MG/200 ML PIGGYBACK 200 MG IV (09:31)
--- NOTE | 2021-04-04 10:17 | PM.PREOP ---
Pre-operative Note COVID-19 COVID-19 status: Negative Interval Note History & Physical reviewed/Exam performed by Physician: Yes Changes to H&P: No
--- NOTE | 2021-04-04 10:18 | P.OP_ITS ---
Operative Date/Time/Diagnoses Date of procedure: 04/04/21 Time of procedure: 10:45 Pre-op diagnosis: Severe left hip osteoarthritis and avascular necrosis with severe fragmentation of the femoral head and marked destruction of the acetabulum Post-op diagnosis: same Procedure & Clinicians Procedure: Left total hip arthroplasty posterior approach Same procedure as scheduled: Yes Indications: The patient has had progressively worsening left hip pain with radiographic changes consistent with arthritis. Non-operative management has failed and the patient has requested total hip replacement. The risks, benefits and alternatives to surgery were discussed with the patient prior to proceeding. Risks discussed included, but were not limited to, failure to relieve pain, leg length discrepancy, dislocation, stiffness, infection, nerve damage, deep venous thrombosis, pulmonary embolism, stroke, coma, heart attack, permanent paralysis and , as well as the potential need for eventual revision of the prosthetic. Surgeon: Mehnaz Ward Social Media Designer: Sophie Anderson Anesthesia Type: General and Spinal Operative Notes Findings: Severe destruction of the left hip with marked fragmentation of the femoral head multiple pieces, moderate softening of the acetabulum, soft bone, acceptable overall alignment, acceptable stability no obvious gross pus or evidence of obvious infection. Closure Type: primary Specimen(s): other (Multiple cultures sent for Gram stain culture and sensitivity and a single specimen sent for PCR) Prosthetic devices, grafts, tissues, transplants, or devices: Ward [employer]hew 52 mm R3 cup, size 9 standard offset anthology, dual mobility 52 x 40 mm acetabular liner with a +0 head size 22, two 6.5 mm screws Applied: drain(s) Estimated Blood Loss (mL): 250 Blood products transfused: none Procedure in detail: The patient was seen in the pre-operative area, where the patient identified the left hip as the operative site and this was marked with my initials. The patient received pre-operative antibiotics and was taken to the operating room and placed on the operative table in the right lateral decubitus position after satisfactory anesthesia. A registered phlebotomist part time out was performed. The left leg was prepared from the ankle to the iliac crest with ChloroPrep in the usual fashion and draped through sterile drapes. The hip was approached through an approximately 20 cm incision centered over the greater trochanter and curving gently posteriorly as it went proximally. This was carried sharply to the fascia huey, which was divided and retracted with a self retaining retractor. The trochanteric bursa was excised with care being taken to avoid the sciatic nerve, which was identified and protected throughout the case. The short external rotators were incised and the capsulomuscular flap was raised and tagged for later repair. The hip was dislocated, and a femoral neck osteotomy performed approximately 15 mm above the lesser trochanter. There was severe fragmentation of the femoral head. There were multiple large loose fragments of femoral head and the residual neck was completely debrided of articular cartilage and functionally debrided of about 80% of the femoral head. A specimen of the synovium was sent for Gram stain culture and sensitivity and also sent some of the femoral head for Gram stain culture and sensitivity. It was quite atypical and I sent the resected femoral neck up into the head piece to pathology for analysis. A deep culture was also taken from the acetabulum. There was some articular cartilage loss in the acetabulum but it was not severe. There was some bony erosion along the anterior rim of the acetabulum. Retractors were placed around the femur. The canal was opened with a box cutting osteotome, followed by a T handled reamer and a lateralizing reamer. The chili pepper broach was then used, followed by sequential broaching until there was good stability of the broach in the femur. Retractors were placed to expose the acetabulum. The labrum and central soft tissues were removed. Reaming was performed initially going up in 2 mm increments, then 1 mm increments until good bite was obtained with an odd sized reamer. The cup 1 mm larger than the last reamer was then inserted using the appropriate anteversion guides. It was further stabilized with 2 additional screws. A trial neutral liner was placed. The broach was placed in the canal. A trial head and neck were then placed and the hip relocated and checked for leg length and stability. An intraoperative film confirmed the component position and no evidence of fracture. The patient was stable in the position of sleep, of squatting, and could be put through a range of motion with 45 degrees internal rotation without dislocation. At 90 degrees flexion, internal rotation to 70? was possible before dislocation. She did have a known fusion of L5-S1 and based on her severe destruction of her hip preoperatively it was felt that she was a a good candidate for dual mobility. Her stability pattern was actually quite stable with conventional component trialing. I still opted to go with dual mobility because of her known lumbar fusion and baseline problem. This was felt to be satisfactory and the appropriate components were opened, and the trials were removed. The acetabular liner was impacted into position. The final stem was then impacted into the prepared femoral canal. A brief Betadine soak was performed while trialing with head options. The hip was meticulously irrigated with normal saline. Finally the femoral head was impacted onto the stem. The acetabulum was cleared of all material and the hip relocated one final time. The capsulomuscular flap was then repaired to the greater trochanter though an awl hole using the tag sutures. The short external rotators were repaired with a nonabsorbable suture. A deep drain was placed and brought out anteriorly. The fascia huey was closed with Vicryl. The subcutaneous layer was closed with barbed sutures and SteriStrips. An Aquacel Ag dressing was applied and the patient was taken to recovery having tolerated the procedure well. Complications: none Post-operative Condition: stable Disposition: Acute Care Plan for aftercare: The patient will be maintained on a standard total hip replacement protocol with weight bearing as tolerated and posterior hip precautions. The patient will receive Aspirin and sequential compression devices for DVT prophylaxis. The patient will be discharged home when safe for the home environment.
[2021-04-04] MEDS: CEFAZOLIN 2 GM/20 ML SYRINGE IV ×2 (11:04→20:10)
[2021-04-04] MEDS: TRANEXAMIC ACID 1,000 MG VIAL 1000 MG INJ ×2 (11:05→12:38)
[2021-04-04] MEDS: BUPIVACAINE 0.25% (PF) 60 ML, EPINEPHrine 0.3 MG INJ (11:39)
[2021-04-04] MEDS: BUPIVACAINE LIPOSOME 266 MG/20 ML VIAL INJ (11:40)
[2021-04-04] MEDS: SODIUM CHLORIDE IRRIG SOLUTION 250 ML, POVIDONE-IODINE SPONGE STICKS 1 APPLIC IRR (11:40)
--- NOTE | 2021-04-04 11:52 | SUR.OPER ---
Lateral on padded OR bed. Gel axillary roll. Arms secured on padded armboard with pillow supporting top arm. Padded hip positioner braces x4 - anterior and posterior chest and pelvis. Additional gel pad used anterior pelvis. Gel pad under bottom leg from knee to foot and secured with tape over sheet. Operative leg in control of the Surgeon.
--- NOTE | 2021-04-04 12:00 | DI.RAD.S_ITS ---
PROCEDURE: XR PELVIS 1-2V INDICATIONS: LT INNER OP HIP TECHNIQUE: Intra-operative view of the pelvis and hip acquired. COMPARISON: None. FINDINGS: Bones: Intraoperative devices prior to placement of arthroplasty prostheses are in expected positions. No fractures or suspicious bony lesions. Soft tissues: Overlying surgical retractors are present, along with other intraoperative changes. IMPRESSION: Intraoperative devices in expected positions. Dictated by: Jak Deng [facility] Interpreted: Marvin Kent MD on 04/04/2021 at 13:15 Transcribed by: HARJINDER on 04/04/2021 at 13:16 Approved by: Marvin Kent M.D. on 04/04/2021 at 17:00
[2021-04-04] MEDS: fentaNYL 100 MCG/2 ML INJ IV ×3 (13:27→13:49)
[2021-04-04] MEDS: HYDROMORPHONE 2 MG INJ IV ×2 (13:56→14:02)
[2021-04-04] MEDS: OXYCODONE IR 5 MG TABLET PO (14:16)
[2021-04-04] MEDS: SUCRALFATE 1 GM TABLET PO ×2 (16:03→20:16)
[2021-04-04] MEDS: ACETAMINOPHEN 325 MG TABLET 650 MG PO ×2 (16:03→20:10)
[2021-04-04] MEDS: LACTATED RINGERS 1,000 ML 125 ML IV (16:05)
[2021-04-04] MEDS: MAGNESIUM OXIDE 400 MG TABLET PO (17:19)
[2021-04-04] MEDS: IBUPROFEN 400 MG TABLET PO ×2 (17:20→20:10)
[2021-04-04] MEDS: TRAZODONE 50 MG TABLET PO (20:10)
[2021-04-04] MEDS: DOCUSATE 100 MG CAPSULE PO (20:11)
[2021-04-04] MEDS: ASPIRIN EC 81 MG TABLET PO (20:11)
[2021-04-04] MEDS: GABAPENTIN 600 MG TABLET 1200 MG PO (20:11)
[2021-04-04] MEDS: MIRTAZAPINE 15 MG TABLET 30 MG PO (20:15)
[2021-04-04] MEDS: PRAVASTATIN 20 MG TABLET 10 MG PO (20:16)
[2021-04-05 00:15] VITALS: BP 138/66; PULSE 84; RESP 17; TEMP 36.8; O2SAT 96
[2021-04-05] MEDS: IBUPROFEN 400 MG TABLET PO ×3 (00:17→08:25)
[2021-04-05] MEDS: LACTATED RINGERS 1,000 ML 125 ML IV (00:17)
[2021-04-05] MEDS: CEFAZOLIN 2 GM/20 ML SYRINGE IV (03:22)
[2021-04-05] MEDS: PANTOPRAZOLE DR 40 MG TABLET PO (05:05)
[2021-04-05] MEDS: OXYCODONE IR 5 MG TABLET PO ×2 (05:05→08:24)
[2021-04-05 05:12] VITALS: BP 129/69; PULSE 82; RESP 18; TEMP 36.9; O2SAT 96
[2021-04-05 06:08] LABS: Hematocrit 32.3 % (36-46); Hemoglobin 10.5 g/dL (12.0-16.0)
[2021-04-05 08:12] VITALS: BP 135/83; PULSE 75; RESP 16; TEMP 36.5; O2SAT 97
[2021-04-05] MEDS: ACETAMINOPHEN 325 MG TABLET 650 MG PO (08:24)
[2021-04-05] MEDS: SUCRALFATE 1 GM TABLET PO (08:24)
[2021-04-05] MEDS: CHOLECALCIFEROL (VITAMIN D3) 1,000 UNIT TABLET 2000 UNIT PO (08:24)
[2021-04-05] MEDS: FISH OIL 1,000 MG CAPSULE 2000 MG PO (08:24)
[2021-04-05] MEDS: ASPIRIN EC 81 MG TABLET PO (08:25)
[2021-04-05] MEDS: SODIUM CHLORIDE 0.9% FLUSH 10 ML IV (08:26)
[2021-04-05] MEDS: DOCUSATE 100 MG CAPSULE PO (08:27)
[2021-04-05] MEDS: GABAPENTIN 600 MG TABLET PO (08:29)
--- NOTE | 2021-04-05 10:25 | PT.IIE ---
Current Diagnoses Idiopathic aseptic necrosis of left femur (04/04/21) Fracture of unspecified part of neck of left femur, initial encounter for closed fracture (04/04/21) Surgery Performed Operation Date: 04/04/21 10:45 Actual Procedures p Total Hip Arthroplasty(Left) - Mehnaz Ward MD Medical History (Last Reviewed 04/05/21 @ 10:32 by Sophie Anderson PA-C) Chronic back pain Constipation Depression Dural tear GERD (gastroesophageal reflux disease) Hiatal hernia HTN (hypertension) Hyperlipidemia IBS (irritable bowel syndrome) Migraines Llamas's neuroma of both feet Numbness and tingling of both legs Physical Therapy Inpatient Evaluation/Re-Eval M1 PT/OT-IP Prior Functional Status Start: 04/05/21 13:38 Freq: NEEDED Status: Active Protocol: Document 04/05/21 10:25 AB (Rec: 04/05/21 13:50 AB [id number]) Medical Review Prior Functional Status Medical History Reviewed Yes Communication able to make needs known Mobility and Gait pt stated that she has her hip fracture ~ 22 weeks ago and since then has been using a SPC; but for the past 4 weeks has to use crutches for mobility and daughter stated that for the last 2 1/2 weeks, pt was unable to ambulate much and only ambulate to use the toilet due to pain. Social History Household Members none Living Arrangements House Number of Floors (Floors) One Floor Number of Stairs To Enter/Railing? 2 steps to enter (platform steps) Home Environment Standard Height Toilet,Tub/ Shower Home Equipment Front Wheel Walker,Straight Cane,Raised Toilet Seat Without Armrests,Shower Seat with Backrest,Hand Held Shower Additional Social History Comment pt plans to go her daughter's house and her daughter will assist her M2 PT-IP Current Condition Start: 04/05/21 13:38 Freq: NEEDED Status: Active Protocol: Document 04/05/21 10:25 AB (Rec: 04/05/21 13:50 AB [id number]) Physical Therapy Current Condition Current Condition Evaluation Date 04/05/21 Treatment Diagnosis s/p L BRIANNE posterior approach; difficulty in walking Onset Date 04/04/21 M3 PT-IP Subjective Start: 04/05/21 13:38 Freq: NEEDED Status: Active Protocol: Document 04/05/21 10:25 AB (Rec: 04/05/21 13:50 AB [email or web address]) Subjective Physical Therapy Visit Type Type Initial Evaluation Visit Start Time 10:25 Visit Stop Time 11:27 Total Visit Minutes 62 Number of RESEARCH COMPUTING SPECIALIST Visits 0 Physical Therapy Visit Comments Patient Comments able to make needs known Therapy Pain Assessment Pain When Pain Assessed At Rest Pain Present Pain Present Pain Reported Location Left Hip Intensity 4 Scale Used Numeric (0 - 10) Pain Management Techniques Apply Cold,Distraction, Modification of Treatment,Re- positioning,Timing of Activity with Medications M4 PT-IP Mobility and Gait Start: 04/05/21 13:38 Freq: NEEDED Status: Active Protocol: Document 04/05/21 10:25 AB (Rec: 04/05/21 13:50 [email or web address]) PT-Bed Mobility Assessment Supine to Sit Supine to Sit Standby Assistance Sit to Supine Sit to Supine Standby Assistance PT-Transfer Assessment Sit to and From Stand Sit to and from Stand Contact Guard Assistance,1 Person Assistance,Use of Upper Extremities Equipment Transfer Assistive Device Gait Belt,Front Wheeled Walker Orthotic/Prosthetic Devices or Brace: No Transfers Transfer Destination Bed Transfer Technique ambulated using FWW Transfer Ability Level of Assist Contact Guard Assistance, Minimal Assistance,1 Person Assistance,Use of Upper Extremities Comments Mobility Comments pt sitting on chair and daughter in room. educated pt and daughter regarding pt's hip precautions. pt is able to recall precautions. completed sit to stand from chair CGA and cues for techniques and ambulated to the bed using FWW min A and cues for L quads activation. completed sit<>supine SBA and cues for techniques. caregiver training conducted. educated daughter on how to use safety belt and how to assist pt. daughter was able to put safety belt on and assisted pt with ambulation out in the hallway and completed up/down platform step using FWW CGA to min a and cues. repeated x 2 sets. ambulated back to the room using FWW with daughter assisting. pt sat back on the chair. positioned on chair. ice pack provided. call light and table placed within reach. Gait Assessment Gait Gait Assistance Required: Contact Guard Assist,Minimum Assistance,1 Person Assist Distance (Feet) 40 Able to Maintain Weight Bearing Status Yes During Gait Assistive Devices Assistive Device Gait Belt,Front Wheeled Walker Orthotic/Prosthetic Devices or Brace: No Gait Deviations General Gait Pattern Decreased Stride Length, Decreased Feet Clearance Factors Limiting Gait Function Factors Limiting Gait Function Decreased Activity Tolerance, Decreased Strength,Limited Range of Motion,Pain,Poor Balance,Poor Safety Awareness Stair Climbing Assessment Evaluation Level of Assist On Stairs Contact Guard Assistance, Minimal Assistance Devices Stair Climbing Assistive Devices Front Wheel Walker Technique/Endurance Stair Climbing Direction Ascend and Descend Stair Climbing Technique Step to Step Number of Steps Climbed 1 Query Text: Stair Climbing Set # Repetitions (reps) 2 PT-Balance Assessment Sitting Balance and Reactions Static Sitting Balance Ability Normal Dynamic Sitting Balance Ability Good Standing Balance and Reactions Static Standing Balance Ability Fair Dynamic Standing Balance Ability Fair Device Used FWW M5 PT-IP Objective Assessments Start: 04/05/21 13:38 Freq: NEEDED Status: Active Protocol: Document 04/05/21 10:25 AB (Rec: 04/05/21 13:50 AB [id number]) Orientation Orientation/Cognition Level of Alertness Alert Orientation Name,Age,Birthday,Month,Date, Year,Day of Week,Place, Situation Language Function Ability No Deficits Noted Safety Awareness Understands Safety Issues Memory Description No Deficits Noted Gross Range of Motion Lower Extremity ROM Assessment Within Functional Limits Strength Lower Extremity Strength Assessment Left Impaired Hip 3+/5 Knee 4-/5 Coordination Assessment Gross Coordination Gross Coordination WNL Sensation Assessment Sensation Gross Sensation WNL Muscle Tone Muscle Tone WNL Yes M6 PT-IP Treatment Start: 04/05/21 13:38 Freq: NEEDED Status: Active Protocol: Document 04/05/21 10:25 AB (Rec: 04/05/21 13:50 AB [email or web address]) Physical Therapy Treatment Education Education Provided Precautions,Weight Bearing Status,Post-Op Packet,Safety M7 PT-IP Assessment and Plan Start: 04/05/21 13:38 Freq: NEEDED Status: Active Protocol: Document 04/05/21 10:25 AB (Rec: 04/05/21 13:50 AB [email or web address]) PT Summary Assessment and Plan Potential Rehabilitation Potential Good Status of Condition at Evaluation Stable Summary Impairments Pain,ROM,Strength,Balance, Coordination,Sensation,Tone, Cognition,Bed Mobility, Transfers,Gait,Activity Tolerance Assessment Summary pt requiring CGA to min a with mobility using FWW. caregiver training conducted and pt's daughter is able to safely assist pt. pt plans to go home later today. Pt may go home when medically stable. Goals Bed Mobility Goal Independent Transfer Goal Independent,Front Wheeled Walker Gait Goal Independent,Front Wheel Walker Gait Distance 250 Other Goals up/down 2 platform steps using FWW mod I Days to Meet Goals 3 Frequency of Treatment Frequency Of Treatment Twice a Day Treatment Plan Physical Therapy Treatment Plan Bed Mobility Training,Transfer Training,Gait Training, Therapeutic Exercise,Balance Retraining,Post Op Education, Discharge Planning,Hot or Cold Pack,Neuromuscular Re-ed, Coordination Retraining,Manual Therapy Precautions Posterior Hip Precautions No Hip Flexion > 90 degrees,No Hip Internal Rotation,No Hip Adduction Weight Bearing Status Weight Bearing Status Weight Bear as Tolerated Allowed Weight Bearing Amount (enter % LLE WBAT or #) (%) Recommendations To Nursing Amount of Assist Needed 1 Person Assist Discharge Recommendations PT Discharge Recommendations Home with Assistance, Outpatient PT Transportation Needs at Discharge Private Vehicle
--- NOTE | 2021-04-05 10:30 | P.DS_ITS ---
History of Present Illness History of Present Illness Date Patient Seen: 04/05/21 Time Patient Seen: 10:30 Chief complaint: Left hip pain s/p left BRIANNE Narrative: The patient is complaining of mild left hip pain this morning. Overall she is feeling well she has not worked with physical therapy yet. Denies any new numbness or tingling. She is feeling good overall and like to be discharged home when she is safe. Discharge Providers Provider Discharge Date: 04/05/21 Primary care physician: Carroll Hayden MD Consults: 04/04/21 06:00 Consult to Anesthesiology Routine Comment: Consulting Provider: Anesthesiologist Reason for consultation: Regional block for post operative pain control 04/04/21 15:15 Consult to Discharge Planning Routine Comment: Consult to Physical Therapy Evaluate & Treat Comment: Physician Instructions: post op BRIANNE protocol Consult to Respiratory Therapy Evaluate & Treat Comment: Physician Instructions: Evaluate and treat Discharge provider: Sophie Anderson PA-C Summary Hospital Course Discharge Diagnosis: Severe left hip osteoarthritis and avascular necrosis with severe fragmentation of the femoral head and marked destruction of the acetabulum Hospital Course: Date of procedure: 04/04/21 Time of procedure: 10:45 Procedure & Clinicians Procedure: Left total hip arthroplasty posterior approach Same procedure as scheduled: Yes Indications: The patient has had progressively worsening left hip pain with radiographic changes consistent with arthritis. Non-operative management has failed and the patient has requested total hip replacement. The risks, benefits and alternatives to surgery were discussed with the patient prior to proceeding. Risks discussed included, but were not limited to, failure to relieve pain, leg length discrepancy, dislocation, stiffness, infection, nerve damage, deep venous thrombosis, pulmonary embolism, stroke, coma, heart attack, permanent paralysis and , as well as the potential need for eventual revision of the prosthetic. Surgeon: Mehnaz Ward Explosive Man: oSphie Anderson Anesthesia Type: General and Spinal Operative Notes Findings: Severe destruction of the left hip with marked fragmentation of the femoral head multiple pieces, moderate softening of the acetabulum, soft bone, acceptable overall alignment, acceptable stability no obvious gross pus or evidence of obvious infection. Closure Type: primary Specimen(s): other (Multiple cultures sent for Gram stain culture and sensitivity and a single specimen sent for PCR) Prosthetic devices, grafts, tissues, transplants, or devices: Ward [employer] Nephew 52 mm R3 cup, size 9 standard offset anthology, dual mobility 52 x 40 mm acetabular liner with a +0 head size 22, two 6.5 mm screws Applied: drain(s) Estimated Blood Loss (mL): 250 Blood products transfused: none Status at Discharge Cognitive/behavioral status at discharge: oriented Functional status at discharge: uses cane/walker Overall status at discharge: patient is progressing back to baseline Exam Vital Signs (past 8 hours): - 04/05/21 05:12 04/05/21 08:12 Temperature 98.5 F 97.7 F Pulse Rate 82 75 Respiratory Rate 18 16 Blood Pressure 129/69 135/83 Pulse Oximetry 96 97 Oxygen Delivery Method Room Air Oxygen Flow Rate 0 Narrative Exam Narrative: 66-year-old female, resting comfortably in her chair, no acute distress. Her daughter is at bedside. Dressing is clean, dry, intact. Bilateral lower extremity motor functions are grossly intact, and she is grossly intact to light touch. Calves are soft, nontender to palpation. Objective Labs Result Diagrams: 04/05/21 05:25 Labs: Laboratory Results - last 24 hr 04/05/21 05:25 Hgb 10.5 L Hct 32.3 L PFSH Medical History Chronic back pain Constipation Depression Dural tear GERD (gastroesophageal reflux disease) Hiatal hernia HTN (hypertension) Hyperlipidemia IBS (irritable bowel syndrome) Migraines Llamas's neuroma of both feet Numbness and tingling of both legs Surgical History History of arthroscopy of left shoulder History of bilateral tubal ligation History of lumbar spinal fusion (03/16/18) Hx of LASIK Hx of repair of left rotator cuff Hx of tonsillectomy Social History household members: family Smoking Status: Former smoker alcohol intake: never Discharge Assessment & Plan Assessment and Plan Assessment: Stable status post left total hip arthroplasty, posterior approach Plan of Treatment: -mobilize with PT. Weightbearing as tolerated front wheel walker. Maintain posterior hip precautions x6 weeks -continue with current pain regimen and we will change to aspirin 325 mg daily for DVT prophylaxis when she is discharged -DC Hemovac after morning session of PT -DC home after cleared by PT -per pal Nettles to DC without final cultures. Currently, there is no growth to date. Discharge Plan Discharge Plan Patient Disposition: Home Discharge orders & Medications Discharge Orders: Discharge (Order); Ordered 04/05/21 Ordered By: Sophie Anderson Prescriptions: New docusate sodium 100 mg Capsule 100 mg PO BID PRN (Reason: Constipation from narcotic pain meds) Qty: 20 0RF ibuprofen 400 mg Tablet 400 mg PO Q4HR PRN (Reason: Pain/inflammation) Qty: 90 0RF oxycodone 5 mg Tablet See Rx Instructions .ROUTE .COMPLEX PRN (Reason: Pain, Moderate (4-6)) Qty: 42 0RF Rx Instructions: Take 1-2 tablets by mouth every 4 hours as needed for moderate to severe postop pain Continued trazodone 50 MG tablet 50 mg PO HS Qty: 0 0RF dicyclomine 20 MG tablet 20 mg PO TIDP PRN (Reason: IBS) Qty: 0 0RF sucralfate 1 GM tablet 1 tab PO TID Qty: 0 0RF gabapentin [Neurontin] 600 MG tablet 2,400 mg PO SEE INSTRUCTIONS Qty: 0 0RF Rx Instructions: 600mg qam, qnoon, 1200mg bedtime mirtazapine 30 MG tablet 30 mg PO HS Qty: 0 0RF omeprazole 20 MG tablet,delayed release (DR/EC) 40 mg PO QDAY Qty: 0 0RF vitamin E 400 UNIT capsule 400 unit PO QDAY Qty: 0 0RF cholecalciferol (vitamin D3) [Vitamin D3] 2,000 UNIT tablet 1 tab PO QDAY Qty: 0 0RF omega 7-rab-sbj-fish oil [Fish Oil] 1,000 MG capsule 2,000 mg PO QAM Qty: 0 0RF hydrocodone-acetaminophen 5-325 mg Tablet 1 tab PO Q4H 0RF pravastatin 10 mg Tablet 10 mg PO QAM 0RF Linzess 145 mcg Capsule 145 mcg PO QAM PRN (Reason: Constipation, IBS symptoms) 0RF magnesium oxide 400 mg magnesium Capsule 400 mg PO QPM 0RF acetaminophen 325 mg Tablet 650 mg PO Q6HR PRN (Reason: Pain, Mild (1-3)) Qty: 60 0RF aspirin 325 MG tablet 325 mg PO QDAY 42 Days Qty: 42 0RF Rx Instructions: Prevent blood clots Follow up/Referrals: Carroll Hayden MD [Primary Care Provider] - Mehnaz Ward MD [Physician] - (10-14 days for postoperative visit) Diet/Activity/Treatments Diet: Diet as Tolerated and Regular Other treatments: Medications: -Aspirin 325mg daily x6 weeks to prevent blood clots. -OTC Tylenol 500 mg 1 tablet every 4 hours as needed for pain/fever. Max 6 tablets per day. -Ibuprofen 400 mg 1 tablet every 4 hours as needed for pain/inflammation. Max 2,400 mg per day. -Oxycodone 5 mg take 1-2 tablets every 4 hours as needed for moderate-severe pain (narcotic pain medication). -As needed medications: -Ducolax and /or MiraLax as needed for constipation from narcotic pain medications. -Pepcid AC as needed for stomach upset (usually from aspirin or ibuprofen). Dressing/Wound care: -Keep Aquacell dressing in place until postoperative follow-up office visit. -Okay to shower. Keep wound out of direct water stream. No soaking or submerging until all the scabs fall off (approximately 6 weeks). -Please call the office if dressing becomes wet, soiled, or saturated. Activities: -Maintain posterior hip precautions x6 weeks. -Weight-bearing as tolerated. Use front wheeled walker, and progress to cane when safe. -Continue with home exercises as directed by your physical therapist. -Elevate ?toes above the nose if you have significant swelling in your lower leg. (A wedge pillow is easiest.) -Ice your incision as needed for pain/inflammation/swelling. Protect your skin with a folded pillowcase. Follow-up: -Follow-up with your surgeon or PA in the office in 10-14 days after surgery. -Follow-up with your surgeon 6 weeks postoperatively. need to follow up on intra-op cultures at your postop appointment Call the office if you have chest pain, shortness of breath, significant swelling that will not resolve with elevating, fever over 101?, significantly worsening pain. [facility]: [phone] Skin/Wound/Dressing Care Report to your healthcare provider any signs of infection, such as:: chills, fever, night sweats, unusual drainage and unusual redness Visit Report/Discharge Packet Instructions: DI for Hip Replacement Stand Alone Forms: Surgery Discharge Discharge Data Primary Care Provider: Carroll Hayden Attending Provider: Mehnaz Ward VTE Deep Vein Thrombosis/Pulmonary Embolism Present on Admission: No
[2021-04-05 10:38] VITALS: O2SAT 96
--- NOTE | 2021-04-05 11:39 | CM.DANOTE ---
DCP: Case received, EMR reviewed and met with patient. Daughter, Stephanie, was also at bedside. Introduces self and role. Was able to obtain information regarding patient's baseline activity status prior to her recent surgery. DCP assessment completed with information currently available. Patient is a 66 year old female who admitted yesterday morning to the care of the orthopedic team. PCP: Dr. Hayden. Payer: confirmed: Medicare/[employer]. Patient came to the hospital via private vehicle for a surgical procedure. Patient had left total hip arthroplasty. Patient had a fracture of unspecified part of neck of left femur. Met with patient in her room. She is alert and oriented, and was sitting up in her chair. Her daughter, Stephanie Winslow, was in the room as well. Patient resides in [place] alone, but will be staying with her daughter, Stephanie, who will assist her when she goes home. Patient had been using crutches at her baseline at home. P: Patient has discharge orders for home today. Will need to be cleared with P.T. prior to discharge. Kassy Evans RN/Bakery Associate Discharge Planning/Care Management CM Discharge Assessment Start: 04/05/21 11:37 Freq: Status: Active Protocol: Document 04/05/21 11:37 (Rec: 04/05/21 11:39 [id number]) Discharge Planning Assessment Assigned Fermentation Operator Kassy Evans RN/Bakery Associate Advance Directives? No Advance Directives on File No History Provided By Family Member,Medical Record Prior Living Arrangements House Household Members family Type of transporation used prior to Relies on Others admit Independent with ADL's Yes Is patient alert and oriented? Yes Caregiver for Another No DME Already Rented / Owned Crutches Patient/Family Preference OP PT Therapy Barriers to Discharge No Comment Patient indicated that she will be staying at her daughter's Discharge Plan Home Transportation Arrangement Family, or significant other Referrals Initiated None needed Whiteboard Updated in Patient Room with Yes name and ext. # of Fermentation Operator Review Status In Process Next Review Type Continued Stay Review Pre-Anesthesia Assessment Start: 03/26/21 09:27 Freq: Status: Complete Protocol: Document 03/26/21 09:27 [facility] (Rec: 03/26/21 10:25 CAB [id number]) Pre-Anesthesia Assessment Patient Information Reviewed Via Phone Assessment Assessment Completed With Patient Diagnostic Results BMP/CMP,EKG,Urinalysis Comment Outside labs(no CBC)/EKG scanned, COVID screen @ [facility] Primary Care Provider Carroll Hayden Seen Specialist in Last 12 Months Yes Specialist Seen Orthopedist Primary Language Spanish Preferred Language Spanish Agricultural Extension Officer Required No Height 5 ft 6 in Weight 176 lb Body Mass Index (BMI) 28.4 Hearing Ability Normal Visual Impairment No Limitations Visual Assist None Dentition Type Teeth, Natural Present,Teeth, Missing Barriers to Learning None Other Aids No Hx Anesthesia Reactions No Hx Family Anesthesia Reaction No Hx Malignant Hyperthermia No Hx Blood Transfusions No Hx Blood Transfusion Reaction No Anesthesia Review Requested No Overhauler Helper No alcohol intake never Smoking Status Former smoker how long ago did patient quit smoking Quit 03/2017 Smoking pack-years 30 Substance Use Type does not use Pain Present Pain Reported Musculoskeletal Symptoms Abnormal Gait,Difficulty Walking,Joint Pain History of Falling (Recent or History of No ) Patient is completely paralyzed or No completely immobile Prosthesis or Orthotic Device Wheelchair,Crutches Mental Status Oriented to own ability Is patient on oxygen? No Does patient have CRUM/SOB No Hx Sleep Apnea No CPAP/BIPAP use not prescribed Currently Taking a Beta Paulo No Can You Climb a Flight of Stairs Without Yes SOB Hx Chest Pain No Hx SOB No Hx Syncope or Dizziness No Anti-Coagulant Therapy No Has a Quality Control Engineer No Cardiac Testing No Hx Pacemaker/ICD No Pacemaker Rep Required? No Cardiac Clearance Received Not Applicable Diet Type At Home Regular dysphagia No Gastrointestinal Symptoms Constipation,Diarrhea,Reflux Bladder Pattern Nocturia Urinary Catheter Present No Hx Urinary Self Catheterization No Diabetes No Patient No Lactating No Hx Drug Resistant Organism No Presence of External or Internal Medical Yes: Lumbar hardware, left Devices shoulder Have you had any close contact with Yes: Pt COVID + 01/04, mild someone diagnosed with COVID-19? symptoms, no hospitalization Received a COVID vaccine? Yes: With Moderna booster Received all doses? Yes Marital Status Single Lives With family Prior Living Arrangements House Number of Floors (Floors) One Floor Support System Child/Children Does the Patient Have Assistance After Yes: Will stay at daughter's [place] Patient Discharge Plan Description Other Comment Pt advised 1-2 day length of stay per surgeon Feels Safe in Current Environment Yes Been Physically Hurt or Threatened By a No Person in Current Environment Do you have thoughts of harming yourself None or others? Are you currently considering suicide? No Do you have a plan to hurt yourself or No Plan others? Do You Have Any Spiritual Beliefs That No May Affect Your HC Choices? Do You Have Any Cultural Practices That No May Affect Your HC Choices? Comment Toby Who Can We Speak to About Patient's Care Family, friends Identifying Code for Release of Patient Declines to issue Information Health Care Proxy/Next of Kin Stephanie Winslow (daughter) Health Care Proxy Emergency Contact Name Stephanie Winslow (daughter) Emergency Contact Advance Directives? No Advance Directives on File No Power of Casing In Line Setter No PAC Instructions Do not shave/clip surgical site,Durable medical equipment ,Medications to take/avoid, Nasal antibiotic,No ETOH/ petroleum product on skin DOS, NPO,Post-op transportation,Pre -surgical wash,Sensory aids, Sturdy shoes/comfortable clothes,Do not bring valuables and remove jewelry
--- NOTE | 2021-04-05 12:14 | PC.NURSE ---
Went over dc instructions and medications with patient and patients daughter. Questions answered. Patient taken via wc to vehicle driven by spouse. Patient had all belongings.
== END 2021-04-05 12:15 | disposition home or self-care (01) ==
LOC: OR 04-06 01:52 → AC 04-06 01:52
PROVIDERS: Admitting Provider Orthopaedic Surgery; PCP Family Medicine; Referring Provider Orthopaedic Surgery; Visit Provider Orthopaedic Surgery
PROC: 0SRB0JZ Replacement of Left Hip Joint with Synthetic Substitute, Open Approach (ICD-10-PCS; CPT 27130; principal; 2021-04-04 10:45)
DX: S72.002A Fracture of unspecified part of neck of left femur, initial encounter for closed fracture (principal); M16.12 Unilateral primary osteoarthritis, left hip; M87.052 Idiopathic aseptic necrosis of left femur; Z86.16 Personal history of COVID-19; K21.9 Gastro-esophageal reflux disease without esophagitis; F41.9 Anxiety disorder, unspecified
CPT/HCPCS: 27130; 36415; 72170; 73502; 85014; 85018; 87070; 87075; 87176; 87205; 87801; 97161; 97530; C1776; G0378; A9270; C9290; J0171; J0690; J1100; J1170; J2405; J2704; J3010